=== PATIENT | male | born 1965 | race Caucasian/White ===

== ENCOUNTER 2021-07-02 10:15 | Outpatient (CLI) | payer MEDICARE, SELFPAY ==
--- NOTE | ~2021-07-02 | CT_ITS ---
EXAMINATION: CT lung screening DATE: 07/02/2021 10:39 INDICATION: Personal history of nicotine dependence, current smoker with 30 pack year history TECHNIQUE: Computed tomography (CT) of the chest was performed without intravenous contrast. The dose -length product (DLP) was 716.14 mGy-cm. Automated exposure control and iterative reconstruction tech [employer] were employed. COMPARISON: None FINDINGS: There is mild emphysema. The lungs are free of acute opacities. No suspicious pulmonary nod ules are identified. There is no pleural effusion or pneumothorax. No pathologically enlarged thoraci c lymph nodes are identified. The heart size is normal. There is calcified coronary artery atheroscle rosis. The liver is diffusely low in attenuation when compared with the spleen, consistent with hepat ic steatosis. There is a 2.6 cm cyst of the right kidney. There is mild anterior vertebral body wedgi ng at the thoracolumbar junction, likely physiologic. There is moderate thoracic spondylosis. There are partially imaged surgical changes of the lower cervical spine. IMPRESSION: 1. Lung-RADS category 1: Negative. Continue annual screening with noncontrast low-dose chest CT in 12 months. Reviewed, dictated and finalized at location [facility]. [employer] [facility] [facility] IMPRESSION: 1. Lung-RADS category 1: Negative. Continue annual screening with noncontrast l ow-dose chest CT in 12 months.
== END 2021-07-02 10:16 | disposition home or self-care (01) ==
LOC: ANHIMG 10:18
PROVIDERS: PCP Internal Medicine; Visit Provider Nurse Practitioner
DX: Z12.2 Encounter for screening for malignant neoplasm of respiratory organs (principal); Z87.891 Personal history of nicotine dependence
CPT/HCPCS: 71271

== ENCOUNTER 2022-04-09 12:13 | Emergency (ER) | payer MEDICARE, SELFPAY ==
[2022-04-09 12:18] VITALS: BP 157/88; PULSE 93; RESP 16; TEMP 36.6; O2SAT 98
--- NOTE | 2022-04-09 12:35 | ED.SKABFB ---
HPI - Skin/Abscess/Foreign Bdy General Chief complaint: Skin/Abscess/Foreign Body Stated complaint: BLISTER ON INSIDE OF THIGH Time Seen by Provider: 04/09/22 12:35 Source: patient Mode of arrival: ambulatory Limitations: no limitations History of Present Illness HPI narrative: 56 y/o male presented for c/o abscess to left upper inner thigh for over one week. He states he has tried to pop it on his own but it did not drain. States it becomes more painful as the day goes on. He states he has a history of abscesses. Did not apply anything to the site. Currently denies nausea, vomiting, diarrhea, fever or chills. Hx DM, HTN. Related Data Home Medications Medication Instructions Recorded Confirmed aspirin 81 mg tablet,delayed 81 mg PO DAILY 05/28/19 03/17/22 release (Adult Low Dose Aspirin) omega-3 fatty acids 1,000 mg 4,000 mg PO DAILY 06/19/20 03/17/22 capsule (Fish Oil Concentrate) aussrpuf-akg-mgnfr acid 300 1 tablet PO DAILY 10/28/21 03/17/22 mcg-lycopene 600 mcg-lutein 300 mcg tablet (Centrum Silver Men) Allergies Allergy/AdvReac Type Severity Reaction Status Date / Time No Known Allergies Allergy Unverified 03/17/22 13:05 NKDA Allergy Unknown Unknown Uncoded 03/17/22 13:05 NKFA Allergy Unknown Unknown Uncoded 03/17/22 13:05 Review of Systems Review of Systems: CONSTITUTIONAL: Denies body aches, fever, chills, or sweats. EYES: Denies visual changes, redness, or discharge. CARDIOVASCULAR: Denies chest pain, palpitations, or edema. RESPIRATORY: Denies cough or dyspnea. GASTROINTESTINAL: Denies abdominal pain, nausea, vomiting, or diarrhea. SKIN: reports abscess MUSCULOSKELETAL: Denies back pain, joint pain, or myalgia. NEUROLOGIC: Denies headache, numbness, tingling, or weakness. [facility] Past Medical History Medical History Arthritis Cervical vertebral fusion C6 - C7 plates and screws. Hypertension Rotator cuff injury Sleep apnea Surgical History Surgical History History of carpal tunnel surgery History of knee replacement S/P cubital tunnel release Family History Family History Mother Family history of mental disorder Hypertension Anxiety Osteoarthritis Father Hypertension Heart attack Grandparent Heart attack Social History Social History Smoking packs per day: 2 Smoking cigarettes per day: 40.0 Smoking status: Current every day smoker Alcohol intake: current Alcohol use details: once a week Comments At time of signature, I have reviewed and agree with nursing past medical, surgical, social and family history unless otherwise noted. Please see nursing chart for further information. There is no relevant family history pertinent to the presenting complaint Exam Narrative: GENERAL: Well-appearing ENT: Mucous membranes moist. Oropharynx without edema, erythema or lesions. NECK: Supple. CHEST: Clear to auscultation. HEART: Regular rate and rhythm. SKIN: Warm, dry. Abscess to left upper inner thigh, induration approx 5cm with fluctuant center no active drainage NEURO: Alert and oriented x3. Course Course Emergency Course: Patient is aware of diagnosis, understands and agrees to treatment plan. Anticipatory guidance given. Patient agrees to follow-up as directed and is aware of reasons to seek care at the emergency department. Portions of this record may have been created with voice recognition software Level of Care: Express Care Visit Vital Signs Vital signs: Vital Signs Temperature 97.9 F 04/09/22 12:18 Pulse Rate 93 04/09/22 12:18 Respiratory Rate 16 04/09/22 12:18 Blood Pressure 157/88 H 04/09/22 12:18 Pulse Oximetry 98 04/09/22 12:18 Oxygen Delivery Room Air 04/09/22 12:18 Temperature 97
== END 2022-04-09 13:16 | disposition home or self-care (01) ==
PROVIDERS: Emergency Provider Nurse Practitioner Family; PCP Nurse Practitioner
DX: L02.416 Cutaneous abscess of left lower limb (principal); F17.210 Nicotine dependence, cigarettes, uncomplicated; M19.90 Unspecified osteoarthritis, unspecified site; I10 Essential (primary) hypertension; G47.30 Sleep apnea, unspecified
CPT/HCPCS: 10060; 87070; 87075; 87076; 87205; 99213; G0463

== ENCOUNTER 2022-07-22 08:30 | Emergency (ER) | payer MEDICARE, SELFPAY ==
[2022-07-22 08:41] VITALS: BP 113/93; PULSE 96; RESP 16; TEMP 36.4; O2SAT 98
--- NOTE | 2022-07-22 08:58 | ED.SKABFB ---
HPI - Skin/Abscess/Foreign Bdy General Chief complaint: Skin/Abscess/Foreign Body Stated complaint: absess on inner thigh Time Seen by Provider: 07/22/22 08:55 Source: patient, RN notes reviewed and old records reviewed Mode of arrival: ambulatory Limitations: no limitations History of Present Illness HPI narrative: 57-year-old male who presents to [facility] with complaints of abscess to the right upper inner thigh for the past 3-4 days. Patient states area is very tender and rubbing when he walks painful also when he sits. 2 cm x 2 cm fluctuant abscess lesion noted to right upper inner thigh, tender on palpation with fluctuation noted. Patient denies any fevers, chills, or sweats. MD complaint: abscess/boil Onset (ago): day(s) ( 3-4) Severity scale (1-10): 3 Treatments prior to arrival: other ( warm compresses) Related Data Home Medications Medication Instructions Recorded Confirmed aspirin 81 mg tablet,delayed 81 mg PO DAILY 05/28/19 07/22/22 release (Adult Low Dose Aspirin) omega-3 fatty acids 1,000 mg 4,000 mg PO DAILY 06/19/20 07/22/22 capsule (Fish Oil Concentrate) fuwcinqw-ojz-dwypa acid 300 1 tablet PO DAILY 10/28/21 07/22/22 mcg-lycopene 600 mcg-lutein 300 mcg tablet (Centrum Silver Men) Allergies Allergy/AdvReac Type Severity Reaction Status Date / Time No Known Allergies Allergy Verified 07/22/22 08:44 Review of Systems Review of Systems: CONSTITUTIONAL: Denies fever, chills, or sweats. CARDIOVASCULAR: Denies chest pain, palpitations, or edema. RESPIRATORY: Denies cough or dyspnea. GASTROINTESTINAL: Denies abdominal pain, nausea, vomiting SKIN: Reports redness and swelling. Denies purulent drainage, buttock abscess noted to right upper inner thigh, no pain beyond proportion MUSCULOSKELETAL: Denies myalgia. NEUROLOGIC: Denies headache, numbness All systems reviewed & are unremarkable except as noted in HPI and below PMFSH Past Medical History Medical History (Updated 07/26/22 @ 10:56 by Karyn Aragon NP) Arthritis Cervical vertebral fusion C6 - C7 plates and screws. Elevated cholesterol Hypertension Rotator cuff injury Sleep apnea Tobacco abuse Surgical History Surgical History History of carpal tunnel surgery History of knee replacement S/P cubital tunnel release Family History Family History Mother Family history of mental disorder Hypertension Anxiety Osteoarthritis Father Hypertension Heart attack Grandparent Heart attack Social History Social History (Updated 07/26/22 @ 10:55 by Karyn Aragon NP) Smoking packs per day: 2 Smoking cigarettes per day: 40.0 Smoking status: Heavy tobacco smoker Tobacco type: cigarettes Alcohol intake: current Alcohol use details: once a week Substance use: never Lack of Transportation: No Lack of Food: Never True Current Housing: I Have Housing Concerned About Future Housing: No Difficulty Paying Gas/Electric Bills: No Difficulty Paying for Meds: No Currently Unemployed: No Education: High School Diploma/GED Difficulty w/ Childcare or Family Care: No Gender identity (if verbalized by the patient): Male Comments At time of signature, agree with nursing past medical, surgical, social and family history. There is no relevant family history pertinent to the presenting complaint Exam Narrative: GENERAL: Well-appearing, well-nourished, morbidly obese, and in no acute distress. HEAD: Normocephalic, atraumatic. EYES: PERRLA and EOMI. ENT: Nares clear, no rhinorrhea or epistaxis. Mucous membranes moist. TMs normal with good light reflex throat pink with no lesions or drainage NECK: Supple. no lymphadenopathy CHEST: Clear to auscultation. No respiratory distress. HEART: Regular rate and rhythm. No murmur heard. Normal peripheral pulses. ABDOMEN: Soft, nontender, nondistend
[2022-07-22] MEDS: LIDOCAINE HCL 1% LOCAL INJ 2 ML AMPUL INFILTRATE (09:27)
== END 2022-07-22 09:32 | disposition home or self-care (01) ==
PROVIDERS: Emergency Provider Registered Nurse; PCP Nurse Practitioner
DX: L02.415 Cutaneous abscess of right lower limb (principal); F17.210 Nicotine dependence, cigarettes, uncomplicated; M19.90 Unspecified osteoarthritis, unspecified site; E78.00 Pure hypercholesterolemia, unspecified; I10 Essential (primary) hypertension; Z79.82 Long term (current) use of aspirin
CPT/HCPCS: 10060; 87070; 87075; 87205; 99213; G0463

== ENCOUNTER 2023-06-10 15:25 | Emergency (ER) | payer MEDICARE, SELFPAY ==
--- NOTE | 2023-06-10 15:38 | ED.EXTPRO ---
HPI - Extremity Problem General Chief complaint: Extremity Problem,Nontraumatic Stated complaint: R TOE PAIN Time Seen by Provider: 06/10/23 15:41 Source: patient Mode of arrival: ambulatory Limitations: no limitations History of Present Illness HPI Narrative: 50-year-old male history of diabetes and gout presented for complaint right great toe pain, redness, and swelling. Onset 3-4 days. States it feels like gout. Denies injury. Sx started after drinking alcohol, which he usually limits. Pain is worse when walking. Related Data Home Medications Medication Instructions Recorded Confirmed aspirin 81 mg tablet,delayed 81 mg PO DAILY 05/28/19 06/10/23 release (Adult Low Dose Aspirin) omega-3 fatty acids 1,000 mg 4,000 mg PO DAILY 06/19/20 06/10/23 capsule (Fish Oil Concentrate) vmlowawj-ll-ovjlg 300 mcg-K 60 1 tablet PO DAILY 10/28/21 06/10/23 mcg-lycop 600 mcg-lutein 300 mcg tablet (Centrum Silver Men) Allergies Allergy/AdvReac Type Severity Reaction Status Date / Time No Known Allergies Allergy Verified 06/10/23 15:36 Review of Systems Review of Systems: CONSTITUTIONAL: Denies body aches, fever, chills EYES: Denies visual changes ENT: Denies rhinorrhea, congestion CARDIOVASCULAR: Denies chest pain, palpitations, or edema. RESPIRATORY: Denies cough or dyspnea. GASTROINTESTINAL: Denies abdominal pain, nausea, vomiting, or diarrhea. SKIN: Denies rash, itching, or wounds. MUSCULOSKELETAL: Reports right great toe pain denies back pain, or myalgia. NEUROLOGIC: Denies headache, numbness, tingling, or weakness. . All systems reviewed & are unremarkable except as noted in HPI and below PMFSH Past Medical History Medical History Arthritis Cervical vertebral fusion C6 - C7 plates and screws. Elevated cholesterol Hypertension Rotator cuff injury Sleep apnea Tobacco abuse Surgical History Surgical History H/O cervical spine surgery C6-7 plates and screws History of carpal tunnel surgery History of knee replacement S/P cubital tunnel release Family History Family History Mother Family history of mental disorder Hypertension Anxiety Osteoarthritis Father Hypertension Heart attack Grandparent Heart attack Social History Social History Smoking packs per day: 2 Smoking cigarettes per day: 40.0 Smoking status: Heavy tobacco smoker Tobacco type: cigarettes Alcohol intake: current Alcohol use details: once a week Substance use: never Lack of Transportation: No Lack of Food: Never True Current Housing: I Have Housing Concerned About Future Housing: No Difficulty Paying Gas/Electric Bills: No Difficulty Paying for Meds: No Currently Unemployed: No Education: High School Diploma/GED Difficulty w/ Childcare or Family Care: No Gender identity (if verbalized by the patient): Male Comments At time of signature, I have reviewed and agree with nursing past medical, surgical, social and family history unless otherwise noted. Please see nursing chart for further information. There is no relevant family history pertinent to the presenting complaint Exam Narrative: GENERAL: Well-appearing CHEST: Speaks in full sentences. No respiratory distress. HEART: Regular rate and rhythm. Normal and equal peripheral pulses. EXTREMITIES: Right great toe erythema, swelling and tenderness at MTP extending medially; foot has normal strength and sensation, normal range of motion but endorses pain with movement. No open wounds, or obvious deformity; alignment normal, pulse palpable and equal bilaterally, skin warm, dry, pink. Capillary refill less than 3 seconds. SKIN: Warm, dry, no rash. NEURO: Alert and oriented x3. PSYCH: Normal mood and affect
[2023-06-10 15:39] VITALS: BP 130/75; PULSE 78; RESP 16; TEMP 36.6; O2SAT 98
== END 2023-06-10 15:55 | disposition home or self-care (01) ==
PROVIDERS: Emergency Provider Nurse Practitioner Family; PCP Nurse Practitioner
DX: M10.9 Gout, unspecified (principal); F17.210 Nicotine dependence, cigarettes, uncomplicated; M19.90 Unspecified osteoarthritis, unspecified site; E78.00 Pure hypercholesterolemia, unspecified; I10 Essential (primary) hypertension; Z79.82 Long term (current) use of aspirin
CPT/HCPCS: 99213; G0463

== ENCOUNTER 2023-11-16 13:50 | Outpatient (CLI) | payer MEDICARE, SELFPAY ==
--- NOTE | ~2023-11-16 | CT_ITS ---
CT Scan of the Chest without Contrast: Clinical Indication: Lung cancer screening, nicotine dependence Technique: Contiguous sections were acquired throughout the chest without intravenous contrast. Dose reduction technique was used on this scan by utilizing automated exposure control and iterative recon struction technique. The dose-length product (DLP) was 777.13 mGy-cm. COMPARISON: 07/02/2021 Findings: There is no evidence of any significant mediastinal, hilar or axillary lymphadenopathy. Extensive cor onary artery calcifications are present. There is no evidence of pleural or pericardial effusion. Calcified right middle lobe granuloma present. There is minimal emphysema in the upper lobes. Images through the upper abdomen reveal no abnormalities. Impression: Lung RADS 2: Benign appearance. 12 month follow-up screening CT advised. Reviewed, dictated and finalized at [facility]. Impression: Lung RADS 2: Benign appearance. 12 month follow-up screening CT advised.
== END 2023-11-16 13:51 | disposition home or self-care (01) ==
LOC: ANHIMG 13:50
PROVIDERS: PCP Internal Medicine; Visit Provider Nurse Practitioner
DX: Z12.2 Encounter for screening for malignant neoplasm of respiratory organs (principal); F17.200 Nicotine dependence, unspecified, uncomplicated
CPT/HCPCS: 71271

== ENCOUNTER 2024-12-04 23:47 | Inpatient (IN) | payer MEDICARE, SELFPAY ==
--- NOTE | ~2024-12-04 | XR_ITS ---
Clinical Indication: Chest pain PA and lateral views of the chest: Comparison: 12/26/2017 Findings: The lungs are clear, without evidence of focal consolidation or pleural effusion. Cardiome diastinal silhouette is stable. Bones and soft tissues are unremarkable. Impression: Clear lungs. Cardiomegaly. Reviewed, dictated and finalized at location . Impression: Clear lungs. Cardiomegaly.
[2024-12-04 23:45] VITALS: BP 166/93; PULSE 95; RESP 16; TEMP 36.5; O2SAT 94
[2024-12-04 23:53] VITALS: BP 166/93; PULSE 95; RESP 19; O2SAT 96
--- NOTE | 2024-12-04 23:58 | ECG_ITS ---
Test Date: 2024-12-04 23:56:53 Measurements Intervals [place] Rate: 93 P: 53 LA: 157 QRS: 40 QRSD: 111 T: 93 QT: 343 QTc: 429 Interpretive Statements SINUS RHYTHM NONSPECIFIC ST & T-WAVE ABNORMALITY No previous ECG available for comparison Electronically Signed On 12-05-2024 15:58:07 CDT by Rafat Santiago M.D.
[2024-12-05] VITALS (40 sets, daily range): BP systolic 100–184; BP diastolic 47–161; PULSE 71–95; RESP 16–26; TEMP 36.3–37.1; O2SAT 85–100; BMI 56.7
[2024-12-05 00:10] LABS: Basophils Absolute Auto 0.1 K/mm3 (0.0-0.1); Basophils Percent Auto 0.7 % (0.2-1.2); Eosinophils Absolute Auto 0.2 K/mm3 (0-0.3); Eosinophils Percent Auto 2.1 % (0-4.4); Hemoglobin 14.1 g/dL (14.0-18.0); Immature Granulocyte Absolute 0.09 K/mm3 (0.00-0.031); Immature Granulocyte Percent A 0.8 % (0-0.5); Lymphocytes Absolute Auto 3.46 K/mm3 (0.9-3.2); Lymphocytes Percent Auto 31.6 % (18.3-44.2); Mean Corpuscular HGB Conc 33.6 g/dl (32-36); Mean Corpuscular Hemoglobin 33.2 pg (26-34); Mean Corpuscular Volume 98.8 fl (80-100); Monocytes Absolute Auto 0.9 K/mm3 (0.1-0.6); Monocytes Percent Auto 8.5 % (2.6-8.5); Neutrophils Absolute Auto 6.2 K/mm3 (1.3-6.7); Neutrophils Percent Auto 56.3 % (45.5-73.1); Platelet Count Result 206 k/mm3 (150-375); Red Blood Count 4.25 M/mm3 (4.6-6.20); Red Cell Distribution Width 14.4 % (11.5-14.5); White Blood Count 10.9 K/mm3 (4.5-10.0)
--- NOTE | 2024-12-05 00:13 | PC.NURSE ---
Patient states he had 2 ASA at 2200 and 2 ASA in EMS. No dose given at this time.
[2024-12-05 00:22] LABS: Alanine Aminotransferase 30 U/L (6-50); Albumin Level 4.5 g/dL (3.5-5.1); Alkaline Phosphatase 95 U/L (38-126); Anion Gap 10 mmol/L (4-12); Aspartate Amino Transferase 47 U/L (17-59); Bilirubin,Total 0.5 mg/dL (0.2-1.3); Blood Urea Nitrogen 35 mg/dL (9-20); Calcium 9.5 mg/dL (8.4-10.2); Carbon Dioxide 27 mmol/L (22-30); Chloride 101 mmol/L (98-107); Estimated CRCL calculation 81 ml/min; Estimated Glomerular Filt Rate 54; Glucose 348 mg/dL (65-110); Lipase 89 U/L (23-300); Potassium 4.6 mmol/L (3.4-5.0); Sodium 138 mmol/L (137-145)
[2024-12-05 00:24] LABS: Partial Thromboplastin Time 27.2 Seconds (22.3-36.8); Prothrombin Time 13.1 Seconds (11.1-14.7)
--- NOTE | 2024-12-05 00:40 | ECG_ITS ---
Test Date: 2024-12-05 00:47:30 Measurements Intervals [place] Rate: 92 P: 53 ME: 159 QRS: 43 QRSD: 106 T: 91 QT: 346 QTc: 429 Interpretive Statements SINUS RHYTHM NONSPECIFIC ST & T-WAVE ABNORMALITY Compared to ECG 12/04/2024 23:56:53 No significant changes Electronically Signed On 12-05-2024 15:58:30 CDT by Rafat Santiago M.D.
[2024-12-05] MEDS: MORPHINE SULFATE (*CRX) 4 MG/ML INJ IV PUSH (00:45)
--- NOTE | 2024-12-05 00:45 | ED_ITS ---
HPI - General Adult General Chief complaint: Chest Pain Stated complaint: CHEST AND JAW PAIN Time Seen by Provider: 12/04/24 23:53 History of Present Illness HPI narrative: This is a 59-year-old male with hypertension, diabetes, high cholesterol, tobacco use and morbid obesity presenting to the ED with chief complaint chest pain. Patient has had intermittent chest pain over the last 2 days. His 1st episode was yesterday afternoon and was described as pain in his upper chest radiating up to his jaw and his left shoulder. Pain lasted for approximately 3 hours but has recurred several times since then including latest episode at 9:30 p.m.on 12/04. During these episodes the patient becomes diaphoretic and has nausea without vomiting. Patient has continued to have left shoulder pain although that pain is reproducible with movement and he attributes to a left shoulder injury that he has had for quite some time. Related Data Home Medications Medication Instructions Recorded Confirmed Last Taken Type aspirin 81 mg tablet,delayed 81 mg PO DAILY 05/28/19 05/13/24 Unknown History release (Adult Low Dose Aspirin) omega-3 fatty acids 1,000 mg 4,000 mg PO DAILY 06/19/20 05/13/24 Unknown History capsule (Fish Oil Concentrate) wrhsiqdf-ch-dfthn 300 mcg-K 60 1 tablet PO DAILY 10/28/21 05/13/24 Unknown History mcg-lycop 600 mcg-lutein 300 mcg tablet (Centrum Silver Men) ibuprofen 200 mg tablet 600 mg PO TID PRN 04/29/24 05/13/24 Unknown History Allergies Allergy/AdvReac Type Severity Reaction Status Date / Time No Known Allergies Allergy Verified 12/04/24 23:52 [facility] Past Medical History Medical History Arthritis Cervical vertebral fusion C6 - C7 plates and screws. Elevated cholesterol Hypertension Rotator cuff injury Sleep apnea Tobacco abuse Surgical History Surgical History H/O cervical spine surgery C6-7 plates and screws History of carpal tunnel surgery History of knee replacement S/P cubital tunnel release Family History Family History Mother Family history of mental disorder Hypertension Anxiety Osteoarthritis Father Hypertension Heart attack Grandparent Heart attack Social History Social History Smoking packs per day: 2 Smoking cigarettes per day: 40.0 Smoking status: Heavy tobacco smoker Tobacco type: cigarettes Alcohol intake: current Alcohol use details: once a week Substance use: never Lack of Transportation: No Lack of Food: Never True Current Housing: I Have Housing Concerned About Future Housing: No Difficulty Paying Gas/Electric Bills: No Difficulty Paying for Meds: No Currently Unemployed: No Education: High School Diploma/GED Difficulty w/ Childcare or Family Care: No Gender identity (if verbalized by the patient): Male Exam 2 Narrative: APPEARANCE: Morbidly obese, appears uncomfortable Head: atraumatic. EYES: EOMI, NOSE: Atraumatic NECK: Trachea midline RESPIRATORY: No increased rate of breathing clear to auscultation CARDIOVASCULAR: RRR, no peripheral edema ABDOMINAL: Obese, nontender MUSCULOSKELETAl: No obvious deformities NEURO: Alert. Moving 4/4 extremities SKIN:: Warm, dry. Normal color PSYCHIATRIC: Normal affect Course Vital Signs Vital signs: Vital Signs Temperature 97.7 F 12/04/24 23:45 Pulse Rate 95 12/04/24 23:45 Respiratory Rate 16 12/04/24 23:45 Blood Pressure 166/93 H 12/04/24 23:45 Pulse Oximetry 94 12/04/24 23:45 Oxygen Delivery Room Air 12/04/24 23:45 Temperature 97.7 F 12/04/24 23:45 Pulse Rate 88 12/05/24 00:15 Respiratory Rate 19 12/05/24 00:15 Blood Pressure 128/81 12/05/24 00:15 Pulse Oximetry 95 12/05/24 00:15 Oxygen Delivery Room Air 12/05/24 00:15 Medical Decision Making [facility] Narrative Medical decision making narrative: -Course: 59-year-old male presenting intermittent cardiac chest pain over the last 2 days. Patient had mild discomfort in the ED that was treated with oxygen, nitroglycerin and morphine with complete resolution. His EKG showed mild J point depression with upsloping ST in V4 V5 but no STEMI criteria. Initial troponin 3.55. Patient started on heparin drip. Interventional Cardiology was consulted and will plan to Cath in the morning. Patient admitted to the IMU for further management. Patient has a complaint of left shoulder pain which is chronic msk pain. -DDX includes but is not limited to: ACS gerd, pna, pe, ptx Independent EKG interpretation: Rhythm [sinus], Rate [93], [place] -[normal], [place] -[normal], QRS [narrow], QTC [normal], T waves -[negative for concerning inversions], ST Segments - [Negative for concerning elevations] Final interpretations: [Normal Sinus Rhythm] Vital Signs Vital Signs: Vital Signs Temperature 97.7 F 12/04/24 23:45 Pulse Rate 95 12/04/24 23:45 Respiratory Rate 16 12/04/24 23:45 Blood Pressure 166/93 H 12/04/24 23:45 Pulse Oximetry 94 12/04/24 23:45 Oxygen Delivery Room Air 12/04/24 23:45 Temperature 97.7 F 12/04/24 23:45 Pulse Rate 88 12/05/24 00:15 Respiratory Rate 19 12/05/24 00:15 Blood Pressure 128/81 12/05/24 00:15 Pulse Oximetry 95 12/05/24 00:15 Oxygen Delivery Room Air 12/05/24 00:15 Lab Data 12/04/24 23:59 12/04/24 23:59 Labs: Lab Results 12/04/24 Range/Units 23:59 WBC 10.9 H (4.5-10.0) K/mm3 RBC 4.25 L (4.6-6.20) M/mm3 Hgb 14.1 (14.0-18.0) g/dL Hct 42.0 (42.0-52.0) % MCV 98.8 (80-100) fl MCH 33.2 (26-34) pg MCHC 33.6 (32-36) g/dl RDW 14.4 (11.5-14.5) % Plt Count 206 (150-375) k/mm3 MPV 10.0 (7.4-10.4) fl Immature Gran % (Auto) 0.8 H (0-0.5) % Neut % (Auto) 56.3 (45.5-73.1) % Lymph % (Auto) 31.6 (18.3-44.2) % [place] % (Auto) 8.5 (2.6-8.5) % Eos % (Auto) 2.1 (0-4.4) % Baso % (Auto) 0.7 (0.2-1.2) % Lymph # (Auto) 3.46 H (0.9-3.2) K/mm3 [place] # (Auto) 0.9 H (0.1-0.6) K/mm3 Eos # (Auto) 0.2 (0-0.3) K/mm3 Baso # (Auto) 0.1 (0.0-0.1) K/mm3 Abs Immat Gran (auto) 0.09 H (0.00-0.031) K/mm3 Absolute Neuts (auto) 6.2 (1.3-6.7) K/mm3 Absolute Nucleated RBC 0.000 (0.0-0.012) K/mm3 Nucleated RBC % 0.0 (0.0-0.2) % PT 13.1 (11.1-14.7) Seconds INR 1.0 APTT 27.2 (22.3-36.8) Seconds Sodium 138 (137-145) mmol/L Potassium 4.6 (3.4-5.0) mmol/L Chloride 101 (98-107) mmol/L Carbon Dioxide 27 (22-30) mmol/L Anion Gap 10 (4-12) mmol/L BUN 35 H (9-20) mg/dL Creatinine 1.36 H (0.7-1.3) mg/dL Estim Creat Clear Calc 81 ml/min Estimated GFR 54 L (59 - ) Glucose 348 H (65-110) mg/dL Calcium 9.5 (8.4-10.2) mg/dL Total Bilirubin 0.5 (0.2-1.3) mg/dL AST 47 (17-59) U/L ALT 30 (6-50) U/L Alkaline Phosphatase 95 (38-126) U/L Troponin I 3.550 H* (0.000-0.034) ng/mL Total Protein 8.0 (6.3-8.2) g/dL Albumin 4.5 (3.5-5.1) g/dL Lipase 89 (23-300) U/L Discharge Plan Discharge Clinical Impression: Non-ST elevation NV (NSTEMI) Patient Disposition: Still a Patient Condition: Stable Patient Language: Irish Prescriptions: No Action aspirin [Adult Low Dose Aspirin] 81 mg tablet,delayed release (DR/EC) 81 mg PO DAILY Centrum Silver Men 300-600-300 mcg tablet 1 tablet PO DAILY ibuprofen 200 mg tablet 600 mg PO TID PRN baclofen 10 mg tablet 10 mg PO TID PRN (Reason: muscle spasm) Qty: 20 1RF omega-3 fatty acids [Fish Oil Concentrate] 1,000 mg capsule 4,000 mg PO DAILY colchicine 0.6 mg tablet See Rx Instructions PO .COMPLEX Qty: 10 1RF Rx Instructions: take 2 tablets and then 1 hour later take 1 tablet on day one. Then take 1 tablet daily until flare resolves. triamcinolone acetonide 0.1 % lotion 1 applic topical BID PRN (Reason: rash) Qty: 60 0RF Ozempic 1 mg/dose (4 mg/3 mL) pen injector See Rx Instructions .ROUTE .COMPLEX Qty: 3 0RF Dose Instruction: INJECT 1 MG (0.75 ML) SUBCUTANEOUSLY ONCE WEEKLY Rx Instructions: INJECT 1 MG (0.75 ML) SUBCUTANEOUSLY ONCE WEEKLY atorvastatin 80 mg tablet See Rx Instructions .ROUTE .COMPLEX Qty: 100 1RF Dose Instruction: TAKE 1 TABLET BY MOUTH ONCE DAILY Rx Instructions: TAKE 1 TABLET BY MOUTH ONCE DAILY amlodipine 10 mg tablet See Rx Instructions .ROUTE .COMPLEX Qty: 100 1RF Dose Instruction: TAKE 1 TABLET BY MOUTH DAILY Rx Instructions: TAKE 1 TABLET BY MOUTH DAILY irbesartan-hydrochlorothiazide 300-12.5 mg tablet See Rx Instructions .ROUTE .COMPLEX Qty: 100 1RF Dose Instruction: TAKE 1 TABLET BY MOUTH DAILY Rx Instructions: TAKE 1 TABLET BY MOUTH DAILY fenofibrate 160 mg tablet See Rx Instructions .ROUTE .COMPLEX Qty: 100 1RF Dose Instruction: TAKE 1 TABLET BY MOUTH DAILY Rx Instructions: TAKE 1 TABLET BY MOUTH DAILY metformin 1,000 mg tablet 1,000 mg PO BID Qty: 200 1RF hydrochlorothiazide 12.5 mg tablet 12.5 mg PO DAILY Qty: 100 1RF Follow-up/Referrals: Devang Sanchez, [Primary Care Provider] -
[2024-12-05] MEDS: NITROGLYCERIN SL 0.4 MG TABLET SUBLINGUAL (00:46)
[2024-12-05] MEDS: HEPARIN SODIUM 5,000 UNITS/ML VIAL 4000 UNITS IV PUSH ×2 (00:48→07:31)
[2024-12-05] MEDS: HEPARIN SOD/D5W 100 UNITS/ML 25,000 UNITS/250 ML BAG 10 UNITS IV CONT (00:50)
--- OUTSIDE RECORDS SUMMARY | 2024-12-05 01:11 | XMS_ITS | Clinical Summary ---
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 Role Phone Unavailable Primary Care Provider Unavailabl e Social History Tobacco Use Types Packs/Day Years Used Date Smoking Tobacco: Never Assessed Sex and Gender Information Value Date Recorded Sex Assigned at Not on file Legal Sex Male 8:04 PM CDT Gender Identity Not on file Sexual Orientation Not on file Plan of Treatment Health Maintenance Due Date Last Done Comments Colorectal Cancer Screening Colonoscopy (10 Years) 1965 Annual Physical 1968 Hepatitis C 1983 DTaP, Tdap and Td Vaccines ( 1 - Tdap) 1984 Pneumococcal Vaccine: 50+ Ye ars (1 of 1 - PCV) 2015 Zoster Vaccines (1 of 2) 2015 COVID-19 Vaccine ( - 2023-2 5 season) 2024 Meningococcal B Vaccine Aged Out No l onger eligible based on patient's age to complete this topic Meningococcal Vaccine Aged Out No kenrick grace eligible based on patient's age to complete this topic RSV Immunizations Under 20 Months Aged Out No longer eligible based on patient's age to complete this topic
[2024-12-05 01:30] LABS: BEDSIDEPREGUCG Negative
--- NOTE | 2024-12-05 02:36 | ADMGEN ---
This patient, Alfredito Wolfe Jr., was admitted to IMU Room 206-02 at 0223. Patient/family oriented to hospital policies and general routines including ID bracelet, bed and alarms, visiting hours, pain management, procedures, bathroom and other care routines, personal items, smoking policy, room service/diet, and visiting hours. Information on how to activate the Rapid Response Team has been discussed. Patient/Family are encouraged to report perceived risks to care and to ask questions if they do not understand what they are told or what they should do.
--- NOTE | 2024-12-05 04:14 | PM.IMHP ---
H&P: HPI History of Present Illness Date/Time: 12/05/24 04:14 Chief Complaint: Chest pain Narrative: A 59-year-old male patient with a past medical history of hypertension, diabetes, high cholesterol, tobacco use, and morbid obesity presented to the ED due to chest pain. Per chart review, the patient has had chest pain for the last 2 days, which has been radiating to the jaw and his left shoulder. The pain was intermittent, but the previous episode at 9:30 p.m. was a little more severe, and I came to the ED. Pertinent ED labs: WBC 10.9, hemoglobin 14.1, hematocrit 42, platelet 206, sodium 138, potassium 4.6, BUN 35, creatinine 1.36, GFR 54, glucose 348 Troponin :3.5>5.330 EKG: Sinus rhythm, nonspecific ST and T-wave abnormality The patient is admitted to the NSTEMI setting. The patient has all the risk factors for acute MN. I advised the ER physician to contact Interventional Cardiology to review the case and determine if the patient needs urgent catheterization. During the evaluation, patient reports a a has episodes of chest pain associated with diaphoresis from last week. Unfortunately these episodes was more intense yesterday night and he came to ED. Of note patient has left shoulder pain after a fall last week and he reports he has a chronic injury of on his left rotator cuff. Patient id is a chronic smoker to 2 ppd and occasional alcoholism Review of Systems Review of Systems: Except as documented, all other systems were reviewed and are negative. FOR[facility]LY [facility] Past Medical History Medical History Arthritis Cervical vertebral fusion C6 - C7 plates and screws. Elevated cholesterol Hypertension Rotator cuff injury Sleep apnea Tobacco abuse Surgical History Surgical History H/O cervical spine surgery C6-7 plates and screws History of carpal tunnel surgery History of knee replacement S/P cubital tunnel release Family History Family History Mother Family history of mental disorder Hypertension Anxiety Osteoarthritis Father Hypertension Heart attack Grandparent Heart attack Social History Social History Smoking packs per day: 2.0 Smoking cigarettes per day: 40.0 Years smoked: 45 Smoking pack-years: 90.00 Smoking status: Current every day smoker Tobacco type: cigarettes Alcohol intake: current Drinks per week: 6 Alcohol use details: once a week Substance use: current Substance use type: marijuana Last use: 11/29/2024 Do You Feel Safe in your Home?: Yes Lack of Transportation: No Lack of Food: Never True Current Housing: I Have Housing Concerned About Future Housing: No Difficulty Paying Gas/Electric Bills: No Difficulty Paying for Meds: No Currently Unemployed: No Education: High School Diploma/GED Difficulty w/ Childcare or Family Care: No Gender identity (if verbalized by the patient): Male Spiritual care concerns: No Meds Home Medications and Allergies Home Medications Medication Instructions Recorded Confirmed Type aspirin 81 mg tablet,delayed 81 mg PO HS 05/28/19 12/05/24 History release (Adult Low Dose Aspirin) omega-3 fatty acids 1,000 mg 4,000 mg PO HS 06/19/20 12/05/24 History capsule (Fish Oil Concentrate) [id number] 300 mcg-K 60 1 tablet PO HS 10/28/21 12/05/24 History mcg-lycop 600 mcg-lutein 300 mcg tablet (Centrum Silver Men) baclofen 10 mg tablet 10 mg PO TID PRN muscle spasm #20 04/29/24 12/05/24 Rx tabs ibuprofen 200 mg tablet 600 mg PO TID PRN fever or pain 04/29/24 12/05/24 History triamcinolone acetonide 0.1 % 1 applic topical BID PRN rash #60 05/13/24 12/05/24 Rx lotion mL amlodipine 10 mg tablet 10 mg PO HS 12/05/24 12/05/24 History atorvastatin 80 mg tablet 80 mg PO HS 12/05/24 12/05/24 History fenofibrate 160 mg tablet 160 mg PO HS 12/05/24 12/05/24 History hydrochlorothiazide 12.5 mg tablet 12.5 mg PO HS 12/05/24 12/05/24 History irbesartan 300 1 tablet PO HS 12/05/24 12/05/24 History mg-hydrochlorothiazide 12.5 mg tablet metformin 1,000 mg tablet 2,000 mg PO HS 12/05/24 12/05/24 History Allergies Allergy/AdvReac Type Severity Reaction Status Date / Time No Known Allergies Allergy Verified 12/05/24 02:39 Vital Signs Vital Signs - 24 hr 12/04/24 23:45 12/04/24 23:53 12/05/24 00:14 Temperature 97.7 F Pulse Rate 95 95 95 Respiratory Rate 16 19 Blood Pressure 166/93 H 166/93 H Pulse Oximetry 94 96 Oxygen Delivery Room Air Oxygen Flow Rate 12/05/24 00:15 12/05/24 00:15 12/05/24 00:50 Temperature Pulse Rate 88 Respiratory Rate 19 Blood Pressure 128/81 Pulse Oximetry 95 95 100 Oxygen Delivery Room Air Nasal Cannula Oxygen Flow Rate 2 12/05/24 01:47 12/05/24 02:39 12/05/24 03:03 Temperature 98.1 F Pulse Rate 92 90 Respiratory Rate 21 H 23 H Blood Pressure 131/69 139/55 L Pulse Oximetry 93 96 98 Oxygen Delivery Nasal Cannula Oxygen Flow Rate 2 12/05/24 03:18 12/05/24 04:00 Temperature Pulse Rate 88 Respiratory Rate 26 H Blood Pressure Pulse Oximetry 94 96 Oxygen Delivery CPAP Nasal Cannula Oxygen Flow Rate 2 Exam Narrative: APPEARANCE: Morbidly obese, appears uncomfortable Head: atraumatic. EYES: EOMI, NOSE: Atraumatic NECK: Trachea midline RESPIRATORY: No increased rate of breathing clear to auscultation CARDIOVASCULAR: RRR, no peripheral edema ABDOMINAL: Obese, nontender MUSCULOSKELETAl: No obvious deformities NEURO: Alert. Moving 4/4 extremities SKIN:: Warm, dry. Normal color PSYCHIATRIC: Normal affect H&P: Results Labs Labs: Short CBC 12/04/24 Range/Units 23:59 WBC 10.9 H (4.5-10.0) K/mm3 Hgb 14.1 (14.0-18.0) g/dL Hct 42.0 (42.0-52.0) % Plt Count 206 (150-375) k/mm3 BMP 12/04/24 23:59 Sodium 138 Potassium 4.6 Chloride 101 Carbon Dioxide 27 BUN 35 H Creatinine 1.36 H Glucose 348 H Calcium 9.5 Cardiac Enzymes 12/04/24 12/05/24 Range/Units 23:59 02:41 Troponin I 3.550 H* 5.330 H* D (0.000-0.034) ng/mL Liver Function 05/14/25 Range/Units 23:59 Total Bilirubin 0.5 (0.2-1.3) mg/dL AST 47 (17-59) U/L ALT 30 (6-50) U/L Alkaline Phosphatase 95 (38-126) U/L Albumin 4.5 (3.5-5.1) g/dL Assessment and Plan Assessment and plan (1) Hypertension: Qualifiers: Hypertension type: essential hypertension Qualified Code(s): I10 - Essential (primary) hypertension Code(s): I10 - Essential (primary) hypertension Status: Acute (2) Non-ST elevation MN (NSTEMI): Code(s): I21.4 - Non-ST elevation (NSTEMI) myocardial infarction Status: Acute (3) Hyperlipidemia: Qualifiers: Hyperlipidemia type: mixed hyperlipidemia Qualified Code(s): E78.2 - Mixed hyperlipidemia Code(s): E78.5 - Hyperlipidemia, unspecified Status: Acute (4) Elevated cholesterol: Code(s): E78.00 - Pure hypercholesterolemia, unspecified Status: Acute (5) Diabetes mellitus: Qualifiers: Diabetes mellitus complication status: without complication Diabetes mellitus longwall shearer operator insulin use: without jail use Diabetes mellitus type: type 2 Qualified Code(s): E11.9 - Type 2 diabetes mellitus without complications Code(s): E11.9 - Type 2 diabetes mellitus without complications Status: Acute Plan Non-ST elevation MN -Possible cath tomorrow -continue atorvastatin 80 mg, and aspirin 81 mg -Cardiology on board -Continue the heparin drip and give sublingual nitro if needed -Echocardiogram pending -Denies any illicit drug use -Reviewed EKG and CXR Type 2 diabetes mellitus Moderate sliding scale Hypoglycemia protocol Hold metformin HLD Continue atorvastatin 80 mg p.o. q.h.s. Hypertriglyceridemia Continue fenofibrate 160 mg p.o. q.h.s. HTN Continue amlodipine COURTNEY Hold [id number] hydrochlorothiazide 12.5 mg p.o. HS Avoid nephrotoxic drugs Trend BUN and creatinine Gentle fluid resuscitation LÓPEZ Continue home CPAP DVT prophylaxis: On heparin drip Hospitalist MIPS Advance Care Plan I have confirmed that the patient's Advanced Care Plan is present, code status is documented, or surrogate decision maker is listed in patient medical record.: Yes Medication Reconciliation I have utilized all available resources to obtain, update and review the patients current medications (includes all prescriptions, OTC, herbals, cannabis, and nutritional supplements).: Yes
[2024-12-05] MEDS: SODIUM CHLORIDE 0.9% IV 1,000 ML 75 ML IV CONT (05:47)
[2024-12-05 07:00] LABS: Basophils Absolute Auto 0.1 K/mm3 (0.0-0.1); Basophils Percent Auto 0.6 % (0.2-1.2); Eosinophils Absolute Auto 0.2 K/mm3 (0-0.3); Eosinophils Percent Auto 2.1 % (0-4.4); Hematocrit 40.9 % (42.0-52.0); Hemoglobin 13.5 g/dL (14.0-18.0); Immature Granulocyte Absolute 0.08 K/mm3 (0.00-0.031); Immature Granulocyte Percent A 0.8 % (0-0.5); Lymphocytes Absolute Auto 3.65 K/mm3 (0.9-3.2); Lymphocytes Percent Auto 34.2 % (18.3-44.2); Mean Corpuscular Hemoglobin 32.5 pg (26-34); Mean Corpuscular Volume 98.3 fl (80-100); Mean Platelet Volume 9.7 fl (7.4-10.4); Monocytes Absolute Auto 0.9 K/mm3 (0.1-0.6); Monocytes Percent Auto 8.7 % (2.6-8.5); Neutrophils Absolute Auto 5.7 K/mm3 (1.3-6.7); Neutrophils Percent Auto 53.6 % (45.5-73.1); Platelet Count Result 216 k/mm3 (150-375); Red Blood Count 4.16 M/mm3 (4.6-6.20); Red Cell Distribution Width 14.5 % (11.5-14.5); White Blood Count 10.7 K/mm3 (4.5-10.0)
[2024-12-05 07:16] LABS: Prothrombin Time 13.7 Seconds (11.1-14.7)
[2024-12-05 07:17] LABS: Partial Thromboplastin Time 32.3 Seconds (22.3-36.8)
[2024-12-05 07:30] LABS: Hemoglobin A1C 7.3 % (<5.7)
[2024-12-05 07:42] LABS: Glucose Point of Care 183 mg/dl (65-105)
[2024-12-05] MEDS: ACETAMINOPHEN 325 MG TABLET 650 MG PO ×2 (08:47→15:50)
[2024-12-05 11:25] LABS: Glucose Point of Care 192 mg/dl (65-105)
--- NOTE | 2024-12-05 11:46 | PM.IMPN ---
Progress Note: A&P Assessment and Plan (1) Hypertension: Qualifiers: Hypertension type: essential hypertension Qualified Code(s): I10 - Essential (primary) hypertension Code(s): I10 - Essential (primary) hypertension Status: Acute (2) Non-ST elevation ND (NSTEMI): Code(s): I21.4 - Non-ST elevation (NSTEMI) myocardial infarction Status: Acute (3) Hyperlipidemia: Qualifiers: Hyperlipidemia type: mixed hyperlipidemia Qualified Code(s): E78.2 - Mixed hyperlipidemia Code(s): E78.5 - Hyperlipidemia, unspecified Status: Acute (4) Elevated cholesterol: Code(s): E78.00 - Pure hypercholesterolemia, unspecified Status: Acute (5) Diabetes mellitus: Qualifiers: Diabetes mellitus type: type 2 Diabetes mellitus intermediate insulin use: without manager long term care use Diabetes mellitus complication status: without complication Qualified Code(s): E11.9 - Type 2 diabetes mellitus without complications Code(s): E11.9 - Type 2 diabetes mellitus without complications Status: Acute Plan Non-ST elevation ND -Possible cath today -continue atorvastatin 80 mg, and aspirin 81 mg -Cardiology on board -Continue the heparin drip and give sublingual nitro if needed -Echocardiogram pending -Denies any illicit drug use -Reviewed EKG and CXR Type 2 diabetes mellitus Moderate sliding scale Hypoglycemia protocol Hold metformin HLD Continue atorvastatin 80 mg p.o. q.h.s. Hypertriglyceridemia Continue fenofibrate 160 mg p.o. q.h.s. HTN Continue amlodipine COURTNEY Hold [id number]- hydrochlorothiazide 12.5 mg p.o. HS Avoid nephrotoxic drugs Trend BUN and creatinine Gentle fluid resuscitation LÓPEZ Continue home CPAP DVT prophylaxis: On heparin drip Subjective Date/time seen: 12/05/24 11:46 Interval history: per HPI: A 59-year-old male patient with a past medical history of hypertension, diabetes, high cholesterol, tobacco use, and morbid obesity presented to the ED due to chest pain. Per chart review, the patient has had chest pain for the last 2 days, which has been radiating to the jaw and his left shoulder. The pain was intermittent, but the previous episode at 9:30 p.m. was a little more severe, and I came to the ED. Pertinent ED labs: WBC 10.9, hemoglobin 14.1, hematocrit 42, platelet 206, sodium 138, potassium 4.6, BUN 35, creatinine 1.36, GFR 54, glucose 348 Troponin :3.5>5.330 EKG: Sinus rhythm, nonspecific ST and T-wave abnormality 12/05/24 Slime was seen and examined at bedside. he still has chest pain but getting better. complaining of worsening chronic shoulder and back pain. cardiology team has been consulted. plan for possible cardiac cath. Review of Systems Review of Systems: Except as documented, all other systems were reviewed and are negative. Exam Narrative: APPEARANCE: Morbidly obese, appears uncomfortable Head: atraumatic. EYES: EOMI, NOSE: Atraumatic NECK: Trachea midline RESPIRATORY: No increased rate of breathing clear to auscultation CARDIOVASCULAR: RRR, no peripheral edema ABDOMINAL: Obese, nontender MUSCULOSKELETAl: No obvious deformities NEURO: Alert. Moving 4/4 extremities SKIN:: Warm, dry. Normal color PSYCHIATRIC: Normal affect Objective Data Vital Signs Vital Signs: Vital Signs - 24 hr 12/04/24 23:45 12/04/24 23:53 12/05/24 00:14 Temperature 97.7 F Pulse Rate 95 95 95 Respiratory Rate 16 19 Blood Pressure 166/93 H 166/93 H Pulse Oximetry 94 96 Oxygen Delivery Room Air Oxygen Flow Rate 12/05/24 00:15 12/05/24 00:15 12/05/24 00:50 Temperature Pulse Rate 88 Respiratory Rate 19 Blood Pressure 128/81 Pulse Oximetry 95 95 100 Oxygen Delivery Room Air Nasal Cannula Oxygen Flow Rate 2 12/05/24 01:47 12/05/24 02:39 12/05/24 03:03 Temperature 98.1 F Pulse Rate 92 90 Respiratory Rate 21 H 23 H Blood Pressure 131/69 139/55 L Pulse Oximetry 93 96 98 Oxygen Delivery Nasal Cannula Oxygen Flow Rate 2 12/05/24 03:18 12/05/24 04:00 12/05/24 04:00 Temperature Pulse Rate 88 92 Respiratory Rate 26 H Blood Pressure Pulse Oximetry 94 96 Oxygen Delivery CPAP Nasal Cannula Oxygen Flow Rate 2 12/05/24 04:47 12/05/24 06:00 12/05/24 07:45 Temperature 98.3 F 98.1 F Pulse Rate 89 90 85 Respiratory Rate 24 H 18 Blood Pressure 125/51 L 147/67 H Pulse Oximetry 98 85 L Oxygen Delivery Oxygen Flow Rate 12/05/24 08:00 12/05/24 08:00 12/05/24 10:00 Temperature Pulse Rate 86 86 Respiratory Rate Blood Pressure Pulse Oximetry 96 Oxygen Delivery Nasal Cannula Oxygen Flow Rate 2 12/05/24 10:26 12/05/24 11:26 Temperature 98.7 F Pulse Rate 80 Respiratory Rate 20 Blood Pressure 140/60 Pulse Oximetry 95 94 Oxygen Delivery Nasal Cannula Oxygen Flow Rate 2 Intake/Output Intake/Output: Intake & Output 12/02/24 12/03/24 12/04/24 12/05/24 23:59 23:59 23:59 23:59 Intake Total 66.7 Output Total 925 Balance -858.3 Meds/Results Medications: Active Medications Generic Name Dose Route Start Last Admin Trade Name Freq PRN Reason Stop Dose Admin Acetaminophen 650 mg 12/05/24 07:58 12/05/24 08:47 Acetaminophen 325 Mg Tablet PO 650 mg Q6H PRN Administration Mild Pain (1-3) or Fever Amlodipine Besylate 10 mg 12/05/24 21:00 Amlodipine Besylate 10 Mg Tablet PO HS BAMBI Aspirin 81 mg 12/05/24 21:00 Aspirin 81 Mg Enteric Tablet PO HS BAMBI Atorvastatin Calcium 80 mg 12/05/24 21:00 Atorvastatin 40 Mg Tablet PO HS BAMBI Baclofen 10 mg 12/05/24 04:27 Baclofen 10 Mg Tablet PO TID PRN muscle spasm Dextrose 12.5 gm 12/05/24 04:05 Dextrose 50% 25 Gm/50 Ml Syringe IV PUSH PRN PRN Hypoglycemia Protocol Fenofibrate 145 mg 12/05/24 21:00 Fenofibrate Nanocrystallized 145 Mg Tablet PO HS BAMBI Glucagon 1 mg 12/05/24 04:05 Glucagon For Inj 1 Mg Vial IM PRN PRN Hypoglycemia Protocol Glucose 15 gm 12/05/24 04:05 Glucose Oral Gel 15 Gm Of Glucse In 37.5 Gm Tube PO PRN PRN Hypoglycemia Protocol Heparin Sodium (Porcine) 4,000 units 12/05/24 00:40 12/05/24 07:31 Heparin Sodium 5,000 Units/Ml Vial IV PUSH 4,000 units PRN PRN Administration aPTT less than 55 seconds Heparin Sodium (Porcine) 4,000 units 12/05/24 00:40 Heparin Sodium 5,000 Units/Ml Vial IV PUSH PRN PRN aPTT 55 - 70 seconds Hydrochlorothiazide 12.5 mg 12/05/24 21:00 Hydrochlorothiazide 12.5 Mg Capsule PO HS BAMBI Heparin Sodium/Dextrose 25,000 units in 250 mls @ 14 mls/hr 12/05/24 00:40 12/05/24 07:30 Heparin Sodium/D5w 100 Units/Ml IV CONT 1,400 units/hr .[id number] BAMBI 14 mls/hr Titration Protocol 1,400 UNITS/HR Dextrose 1,000 mls @ 100 mls/hr 12/05/24 04:05 Dextrose 5% 1,000 Ml IVPB PRN PRN Hypoglycemia Protocol Sodium Chloride 1,000 mls @ 75 mls/hr 12/05/24 04:35 12/05/24 05:47 Normal Saline Iv IV CONT 75 mls/hr .[id number] BAMBI Administration Insulin Aspart 3 - 6 units 12/05/24 08:00 12/05/24 08:45 Insulin Aspart (*Bkc) 100 Units/Ml SUB-Q Not Given TIDWM [facility] Protocol Insulin Aspart 1 - 3 units 12/05/24 21:00 Insulin Aspart (*Bkc) 100 Units/Ml SUB-Q HS [facility] Protocol Morphine Sulfate 2 mg 12/05/24 09:55 Morphine Sulfate (*Crx) 2 Mg/Ml Inj IV PUSH Q4H PRN Pain Rated 7-10 Perflutren Lipid Microsphere 0 ml 12/05/24 04:26 Perflutren Lipid Microspheres 1.5 Ml Vial Diluted To 10 Ml Total Volume IV PUSH 12/08/24 04:26 ONCE PRN adequate visualization Protocol Radiology Results: ITS Impressions Chest X-Ray 12/05/24 05:14 Impression: Clear lungs. Cardiomegaly. Labs Labs: Laboratory Results - last 24 hr 12/04/24 12/05/24 12/05/24 23:59 01:28 02:41 WBC 10.9 H RBC 4.25 L Hgb 14.1 Hct 42.0 MCV 98.8 MCH 33.2 MCHC 33.6 RDW 14.4 Plt Count 206 MPV 10.0 Immature Gran % (Auto) 0.8 H Neut % (Auto) 56.3 Lymph % (Auto) 31.6 Warren % (Auto) 8.5 Eos % (Auto) 2.1 Baso % (Auto) 0.7 Lymph # (Auto) 3.46 H Warren # (Auto) 0.9 H Eos # (Auto) 0.2 Baso # (Auto) 0.1 Abs Immat Gran (auto) 0.09 H Absolute Neuts (auto) 6.2 Absolute Nucleated RBC 0.000 Nucleated RBC % 0.0 PT 13.1 INR 1.0 APTT 27.2 Sodium 138 Potassium 4.6 Chloride 101 Carbon Dioxide 27 Anion Gap 10 BUN 35 H Creatinine 1.36 H Estim Creat Clear Calc 81 Estimated GFR 54 L Glucose 348 H POC Capillary Glucose Hemoglobin A1c Calcium 9.5 Total Bilirubin 0.5 AST 47 ALT 30 Alkaline Phosphatase 95 Troponin I 3.550 H* 5.330 H* D Total Protein 8.0 Albumin 4.5 Lipase 89 POC Urine HCG, Qual Negative 12/05/24 12/05/24 12/05/24 06:54 07:20 11:18 WBC 10.7 H RBC 4.16 L Hgb 13.5 L Hct 40.9 L MCV 98.3 MCH 32.5 MCHC 33.0 RDW 14.5 Plt Count 216 MPV 9.7 Immature Gran % (Auto) 0.8 H Neut % (Auto) 53.6 Lymph % (Auto) 34.2 Warren % (Auto) 8.7 H Eos % (Auto) 2.1 Baso % (Auto) 0.6 Lymph # (Auto) 3.65 H Warren # (Auto) 0.9 H Eos # (Auto) 0.2 Baso # (Auto) 0.1 Abs Immat Gran (auto) 0.08 H Absolute Neuts (auto) 5.7 Absolute Nucleated RBC 0.000 Nucleated RBC % 0.0 PT 13.7 INR 1.0 APTT 32.3 Sodium Potassium Chloride Carbon Dioxide Anion Gap BUN Creatinine Estim Creat Clear Calc Estimated GFR Glucose POC Capillary Glucose 183 H 192 H Hemoglobin A1c 7.3 H Calcium Total Bilirubin AST ALT Alkaline Phosphatase Troponin I 6.770 H* D Total Protein Albumin Lipase POC Urine HCG, Qual
--- NOTE | 2024-12-05 12:24 | PM.CNCAR ---
Assessment and Plan Assessment and plan (1) Non-ST elevation ME (NSTEMI): Code(s): I21.4 - Non-ST elevation (NSTEMI) myocardial infarction Status: Acute (2) Hypertension associated with diabetes: Code(s): E11.59 - Type 2 diabetes mellitus with other circulatory complications; I15.2 - Hypertension secondary to endocrine disorders Status: Acute (3) Hyperlipidemia associated with type 2 diabetes mellitus: Code(s): E11.69 - Type 2 diabetes mellitus with other specified complication; E78.5 - Hyperlipidemia, unspecified Status: Acute Plan 59-year-old man who is an active smoker with diabetes, hypertension, hyperlipidemia, and morbid obesity presents with chest discomfort Non ST-elevation ME -continue aspirin 81 mg p.o. daily and atorvastatin 80 mg every evening -obtain a transthoracic echocardiogram and add carvedilol 12.5 mg p.o. b.i.d. -heparin drip and proceed with urgent left heart cardiac catheterization with possible PCI -procedure risk and benefits as well as alternatives have been discussed with the patient who agreed to proceed forward with the procedure Hypertension -hydrochlorothiazide 12.5 mg p.o. daily, amlodipine 10 mg p.o. daily and will add carvedilol 12.5 mg p.o. b.i.d. Hyperlipidemia -atorvastatin 80 mg every evening Active tobacco user -cessation counseling History of Present Illness History of Present Illness Consult date/time: 12/05/24 12:24 Requesting physician: Saleem Gresham MD Reason For Visit: NSTEMI Narrative: 59-year-old man who is an active smoker with diabetes, hypertension, hyperlipidemia, and morbid obesity presents with chest discomfort. He had an episode of chest discomfort last week that lasted for an hour with radiation to jaw. It resolved on its own with rest. About 3 days ago he had recurrence of intermittent chest discomfort also with radiation to the jaw. This persistently worsen in intensity, duration, and frequency finally prompting patient to present to the emergency room for further assistance. Has some associated shortness of breath. He is not very physically active and has not noted is any exacerbating factors. His physical limitations are mostly secondary to orthopedic issues including knee and back problems. Review of Systems Cardiovascular: Cardiovascular: Reports as per HPI Respiratory: Respiratory: Reports as per HPI [facility] Past Medical History Medical History Arthritis Cervical vertebral fusion C6 - C7 plates and screws. Elevated cholesterol Hypertension Rotator cuff injury Sleep apnea Tobacco abuse Surgical History Surgical History H/O cervical spine surgery C6-7 plates and screws History of carpal tunnel surgery History of knee replacement S/P cubital tunnel release Family History Family History Mother Family history of mental disorder Hypertension Anxiety Osteoarthritis Father Hypertension Heart attack Grandparent Heart attack Social History Social History Smoking packs per day: 2.0 Smoking cigarettes per day: 40.0 Years smoked: 45 Smoking pack-years: 90.00 Smoking status: Current every day smoker Tobacco type: cigarettes Alcohol intake: current Drinks per week: 6 Alcohol use details: once a week Substance use: current Substance use type: marijuana Last use: 11/29/2024 Do You Feel Safe in your Home?: Yes Lack of Transportation: No Lack of Food: Never True Current Housing: I Have Housing Concerned About Future Housing: No Difficulty Paying Gas/Electric Bills: No Difficulty Paying for Meds: No Currently Unemployed: No Education: High School Diploma/GED Difficulty w/ Childcare or Family Care: No Gender identity (if verbalized by the patient): Male Spiritual care concerns: No Meds Home Medications and Allergies Home Medications Medication Instructions Recorded Confirmed Type aspirin 81 mg tablet,delayed 81 mg PO HS 05/28/19 12/05/24 History release (Adult Low Dose Aspirin) omega-3 fatty acids 1,000 mg 4,000 mg PO HS 06/19/20 12/05/24 History capsule (Fish Oil Concentrate) [id number] 300 mcg-K 60 1 tablet PO HS 10/28/21 12/05/24 History mcg-lycop 600 mcg-lutein 300 mcg tablet (Centrum Silver Men) baclofen 10 mg tablet 10 mg PO TID PRN muscle spasm #20 04/29/24 12/05/24 Rx tabs ibuprofen 200 mg tablet 600 mg PO TID PRN fever or pain 04/29/24 12/05/24 History triamcinolone acetonide 0.1 % 1 applic topical BID PRN rash #60 05/13/24 12/05/24 Rx lotion mL amlodipine 10 mg tablet 10 mg PO HS 12/05/24 12/05/24 History atorvastatin 80 mg tablet 80 mg PO HS 12/05/24 12/05/24 History fenofibrate 160 mg tablet 160 mg PO HS 12/05/24 12/05/24 History hydrochlorothiazide 12.5 mg tablet 12.5 mg PO HS 12/05/24 12/05/24 History irbesartan 300 1 tablet PO HS 12/05/24 12/05/24 History mg-hydrochlorothiazide 12.5 mg tablet metformin 1,000 mg tablet 2,000 mg PO HS 12/05/24 12/05/24 History Allergies Allergy/AdvReac Type Severity Reaction Status Date / Time No Known Allergies Allergy Verified 12/05/24 02:39 Vital Signs Vital Signs - 24 hr 12/04/24 23:45 12/04/24 23:53 12/05/24 00:14 Temperature 36.5 C Pulse Rate 95 95 95 Respiratory Rate 16 19 Blood Pressure 166/93 H 166/93 H Pulse Oximetry 94 96 Oxygen Delivery Room Air Oxygen Flow Rate 12/05/24 00:15 12/05/24 00:15 12/05/24 00:50 Temperature Pulse Rate 88 Respiratory Rate 19 Blood Pressure 128/81 Pulse Oximetry 95 95 100 Oxygen Delivery Room Air Nasal Cannula Oxygen Flow Rate 2 12/05/24 01:47 12/05/24 02:39 12/05/24 03:03 Temperature 36.7 C Pulse Rate 92 90 Respiratory Rate 21 H 23 H Blood Pressure 131/69 139/55 L Pulse Oximetry 93 96 98 Oxygen Delivery Nasal Cannula Oxygen Flow Rate 2 12/05/24 03:18 12/05/24 04:00 12/05/24 04:00 Temperature Pulse Rate 88 92 Respiratory Rate 26 H Blood Pressure Pulse Oximetry 94 96 Oxygen Delivery CPAP Nasal Cannula Oxygen Flow Rate 2 12/05/24 04:47 12/05/24 06:00 12/05/24 07:45 Temperature 36.8 C 36.7 C Pulse Rate 89 90 85 Respiratory Rate 24 H 18 Blood Pressure 125/51 L 147/67 H Pulse Oximetry 98 85 L Oxygen Delivery Oxygen Flow Rate 12/05/24 08:00 12/05/24 08:00 12/05/24 10:00 Temperature Pulse Rate 86 86 Respiratory Rate Blood Pressure Pulse Oximetry 96 Oxygen Delivery Nasal Cannula Oxygen Flow Rate 2 12/05/24 10:26 12/05/24 11:26 Temperature 37.1 C Pulse Rate 80 Respiratory Rate 20 Blood Pressure 140/60 Pulse Oximetry 95 94 Oxygen Delivery Nasal Cannula Oxygen Flow Rate 2 Exam Const: General: no acute distress HENMT: Mouth: Yes moist mucous membranes Eyes: EOM: EOMs intact bilaterally Neck: Neck: no JVD Resp: Effort & Inspection: normal respiratory effort Auscultation: clear to auscultation bilaterally Cardio: Rate: regular rate Rhythm: regular rhythm GI: GI Palp: Yes Soft to palpation Extrem: General: no pedal edema Results Labs and Meds 12/05/24 06:54 12/04/24 23:59 Lab results: Cardiac Enzymes 12/04/24 12/05/24 12/05/24 Range/Units 23:59 02:41 06:54 AST 47 (17-59) U/L Troponin I 3.550 H* 5.330 H* D 6.770 H* D (0.000-0.034) ng/mL Coagulation 12/04/24 12/05/24 Range/Units 23:59 06:54 PT 13.1 13.7 (11.1-14.7) Seconds APTT 27.2 32.3 (22.3-36.8) Seconds CBC 12/04/24 12/05/24 Range/Units 23:59 06:54 WBC 10.9 H 10.7 H (4.5-10.0) K/mm3 RBC 4.25 L 4.16 L (4.6-6.20) M/mm3 Hgb 14.1 13.5 L (14.0-18.0) g/dL Hct 42.0 40.9 L (42.0-52.0) % Plt Count 206 216 (150-375) k/mm3 Lymph # (Auto) 3.46 H 3.65 H (0.9-3.2) K/mm3 [place] # (Auto) 0.9 H 0.9 H (0.1-0.6) K/mm3 Eos # (Auto) 0.2 0.2 (0-0.3) K/mm3 Baso # (Auto) 0.1 0.1 (0.0-0.1) K/mm3 Comprehensive Metabolic Panel 12/04/24 Range/Units 23:59 Sodium 138 (137-145) mmol/L Potassium 4.6 (3.4-5.0) mmol/L Chloride 101 (98-107) mmol/L Carbon Dioxide 27 (22-30) mmol/L BUN 35 H (9-20) mg/dL Creatinine 1.36 H (0.7-1.3) mg/dL Glucose 348 H (65-110) mg/dL Calcium 9.5 (8.4-10.2) mg/dL AST 47 (17-59) U/L ALT 30 (6-50) U/L Alkaline Phosphatase 95 (38-126) U/L Total Protein 8.0 (6.3-8.2) g/dL Albumin 4.5 (3.5-5.1) g/dL Intake and Output 12/04/24 12/05/24 12/05/24 23:59 07:59 15:59 Intake Total 66.7 Output Total 925 Balance -858.3 Intake: IV 66.7 Heparin Sod/D5w 100 Units/ml 25 66.7 ,000 units In 250 ml @ 1,400 UNITS/HR 14 mls/hr IV CONT . [id number] [facility], [facility] Rx#:[id number] Output: Urine 925 Patient Weight 12/05/24 23:59 Weight 169.1 kg
[2024-12-05 14:15] LABS: Activated Clotting Time 199 SEC (74-137)
[2024-12-05 14:43] LABS: Activated Clotting Time 273 SEC (74-137)
--- NOTE | 2024-12-05 15:27 | WPDHPUPDATE1 ---
History and Physical Update Update Date/Time: 12/05/24 14:20 History and Physical has been reviewed, including an updated exam of the patient. There are NO changes in the patient's condition. Risks, benefits, and alternatives have been discussed and questions answered. Patient agrees to proceed with procedure.
--- NOTE | 2024-12-05 15:28 | WPDMODSED ---
Moderate Sedation Note-Pt Data Patient Data Allergies Allergy/AdvReac Type Severity Reaction Status Date / Time No Known Allergies Allergy Verified 12/05/24 02:39 Home Medications Medication Instructions Recorded Confirmed Type aspirin 81 mg tablet,delayed 81 mg PO HS 05/28/19 12/05/24 History release (Adult Low Dose Aspirin) omega-3 fatty acids 1,000 mg 4,000 mg PO HS 06/19/20 12/05/24 History capsule (Fish Oil Concentrate) [id number] 300 mcg-K 60 1 tablet PO HS 10/28/21 12/05/24 History mcg-lycop 600 mcg-lutein 300 mcg tablet (Centrum Silver Men) baclofen 10 mg tablet 10 mg PO TID PRN muscle spasm #20 04/29/24 12/05/24 Rx tabs ibuprofen 200 mg tablet 600 mg PO TID PRN fever or pain 04/29/24 12/05/24 History triamcinolone acetonide 0.1 % 1 applic topical BID PRN rash #60 05/13/24 12/05/24 Rx lotion mL amlodipine 10 mg tablet 10 mg PO HS 12/05/24 12/05/24 History atorvastatin 80 mg tablet 80 mg PO HS 12/05/24 12/05/24 History fenofibrate 160 mg tablet 160 mg PO HS 12/05/24 12/05/24 History hydrochlorothiazide 12.5 mg tablet 12.5 mg PO HS 12/05/24 12/05/24 History irbesartan 300 1 tablet PO HS 12/05/24 12/05/24 History mg-hydrochlorothiazide 12.5 mg tablet metformin 1,000 mg tablet 2,000 mg PO HS 12/05/24 12/05/24 History Current Medications: Active Medications Acetaminophen (Acetaminophen 325 Mg Tablet) 650 mg PO Q6H PRN PRN Reason: Mild Pain (1-3) or Fever Last Admin: 12/05/24 08:47 Dose: 650 mg Amlodipine Besylate (Amlodipine Besylate 10 Mg Tablet) 10 mg PO HS BAMBI Aspirin (Aspirin 81 Mg Enteric Tablet) 81 mg PO HS BAMBI Atorvastatin Calcium (Atorvastatin 40 Mg Tablet) 80 mg PO HS BAMBI Baclofen (Baclofen 10 Mg Tablet) 10 mg PO TID PRN PRN Reason: muscle spasm Carvedilol (Carvedilol 12.5 Mg Tablet) 12.5 mg PO Q12HR BAMBI Dextrose (Dextrose 50% 25 Gm/50 Ml Syringe) 12.5 gm IV PUSH PRN PRN; Protocol PRN Reason: Hypoglycemia Fenofibrate (Fenofibrate Nanocrystallized 145 Mg Tablet) 145 mg PO HS BAMBI Glucagon (Glucagon For Inj 1 Mg Vial) 1 mg IM PRN PRN; Protocol PRN Reason: Hypoglycemia Glucose (Glucose Oral Gel 15 Gm Of Glucse In 37.5 Gm Tube) 15 gm PO PRN PRN; Protocol PRN Reason: Hypoglycemia Hydrochlorothiazide (Hydrochlorothiazide 12.5 Mg Capsule) 12.5 mg PO HS BAMBI Dextrose (Dextrose 5% 1,000 Ml) 1,000 mls @ 100 mls/hr IVPB PRN PRN; Protocol PRN Reason: Hypoglycemia Sodium Chloride (Normal Saline Iv) 1,000 mls @ 75 mls/hr IV CONT .[id number] BAMBI Last Admin: 12/05/24 05:47 Dose: 75 mls/hr Sodium Chloride (Normal Saline Iv) 1,000 mls @ 100 mls/hr IV CONT .Q10H ONE Stop: 12/06/24 00:58 Insulin Aspart (Insulin Aspart (*Bkc) 100 Units/Ml) 3 - 6 units SUB-Q TIDWM BAMBI; Protocol Last Admin: 12/05/24 12:28 Dose: Not Given Insulin Aspart (Insulin Aspart (*Bkc) 100 Units/Ml) 1 - 3 units SUB-Q HS BAMBI; Protocol Morphine Sulfate (Morphine Sulfate (*Crx) 2 Mg/Ml Inj) 2 mg IV PUSH Q4H PRN PRN Reason: Pain Rated 7-10 Perflutren Lipid Microsphere (Perflutren Lipid Microspheres 1.5 Ml Vial Diluted To 10 Ml Total Volume) 0 ml IV PUSH ONCE PRN; Protocol PRN Reason: adequate visualization Stop: 12/08/24 04:26 Ticagrelor (Ticagrelor 90 Mg Tablet) 90 mg PO Q12HR [facility] Sedation/Anesthesia: No previous sedation/anesthesia problems (including family history). [facility] Past Medical History Medical History Arthritis Cervical vertebral fusion C6 - C7 plates and screws. Elevated cholesterol Hypertension Rotator cuff injury Sleep apnea Tobacco abuse Surgical History Surgical History H/O cervical spine surgery C6-7 plates and screws History of carpal tunnel surgery History of knee replacement S/P cubital tunnel release Family History Family History Mother Family history of mental disorder Hypertension Anxiety Osteoarthritis Father Hypertension Heart attack Grandparent Heart attack Social History Social History Smoking packs per day: 2.0 Smoking cigarettes per day: 40.0 Years smoked: 45 Smoking pack-years: 90.00 Smoking status: Current every day smoker Tobacco type: cigarettes Alcohol intake: current Drinks per week: 6 Alcohol use details: once a week Substance use: current Substance use type: marijuana Last use: 11/29/2024 Do You Feel Safe in your Home?: Yes Lack of Transportation: No Lack of Food: Never True Current Housing: I Have Housing Concerned About Future Housing: No Difficulty Paying Gas/Electric Bills: No Difficulty Paying for Meds: No Currently Unemployed: No Education: High School Diploma/GED Difficulty w/ Childcare or Family Care: No Gender identity (if verbalized by the patient): Male Spiritual care concerns: No Mod Sed Physical Exam Physical Exam Pre Procedural Exam: Normal: Lungs and Heart Rate Hours since solid foods: 12 Hours since liquid intake: 12 Mallampati Classification: class III Internal Medicine - PN: Obj Da Vital Signs Vital Signs: Vital Signs - 24 hr 12/04/24 23:45 12/04/24 23:53 12/05/24 00:14 Temperature 36.5 C Pulse Rate 95 95 95 Respiratory Rate 16 19 Blood Pressure 166/93 H 166/93 H Pulse Oximetry 94 96 Oxygen Delivery Room Air Oxygen Flow Rate 12/05/24 00:15 12/05/24 00:15 12/05/24 00:50 Temperature Pulse Rate 88 Respiratory Rate 19 Blood Pressure 128/81 Pulse Oximetry 95 95 100 Oxygen Delivery Room Air Nasal Cannula Oxygen Flow Rate 2 12/05/24 01:47 12/05/24 02:39 12/05/24 03:03 Temperature 36.7 C Pulse Rate 92 90 Respiratory Rate 21 H 23 H Blood Pressure 131/69 139/55 L Pulse Oximetry 93 96 98 Oxygen Delivery Nasal Cannula Oxygen Flow Rate 2 12/05/24 03:18 12/05/24 04:00 12/05/24 04:00 Temperature Pulse Rate 88 92 Respiratory Rate 26 H Blood Pressure Pulse Oximetry 94 96 Oxygen Delivery CPAP Nasal Cannula Oxygen Flow Rate 2 12/05/24 04:47 12/05/24 06:00 12/05/24 07:45 Temperature 36.8 C 36.7 C Pulse Rate 89 90 85 Respiratory Rate 24 H 18 Blood Pressure 125/51 L 147/67 H Pulse Oximetry 98 85 L Oxygen Delivery Oxygen Flow Rate 12/05/24 08:00 12/05/24 08:00 12/05/24 10:00 Temperature Pulse Rate 86 86 Respiratory Rate Blood Pressure Pulse Oximetry 96 Oxygen Delivery Nasal Cannula Oxygen Flow Rate 2 12/05/24 10:26 12/05/24 11:26 12/05/24 12:00 Temperature 37.1 C Pulse Rate 80 Respiratory Rate 20 Blood Pressure 140/60 Pulse Oximetry 95 94 96 Oxygen Delivery Nasal Cannula Nasal Cannula Oxygen Flow Rate 2 2 12/05/24 12:00 12/05/24 15:00 Temperature Pulse Rate 80 80 Respiratory Rate 20 Blood Pressure 159/83 H Pulse Oximetry 96 Oxygen Delivery Nasal Cannula Oxygen Flow Rate 2 Intake/Output Intake/Output: Intake & Output 12/02/24 12/03/24 12/04/24 12/05/24 23:59 23:59 23:59 23:59 Intake Total 66.7 Output Total 925 Balance -858.3 Meds/Results Medications: Active Medications Generic Name Dose Route Start Last Admin Trade Name Freq PRN Reason Stop Dose Admin Acetaminophen 650 mg 12/05/24 07:58 12/05/24 08:47 Acetaminophen 325 Mg Tablet PO 650 mg Q6H PRN Administration Mild Pain (1-3) or Fever Amlodipine Besylate 10 mg 12/05/24 21:00 Amlodipine Besylate 10 Mg Tablet PO HS BAMBI Aspirin 81 mg 12/05/24 21:00 Aspirin 81 Mg Enteric Tablet PO HS BAMBI Atorvastatin Calcium 80 mg 12/05/24 21:00 Atorvastatin 40 Mg Tablet PO HS BAMBI Baclofen 10 mg 12/05/24 04:27 Baclofen 10 Mg Tablet PO TID PRN muscle spasm Carvedilol 12.5 mg 12/05/24 21:00 Carvedilol 12.5 Mg Tablet PO Q12HR BAMBI Dextrose 12.5 gm 12/05/24 04:05 Dextrose 50% 25 Gm/50 Ml Syringe IV PUSH PRN PRN Hypoglycemia Protocol Fenofibrate 145 mg 12/05/24 21:00 Fenofibrate Nanocrystallized 145 Mg Tablet PO HS BAMBI Glucagon 1 mg 12/05/24 04:05 Glucagon For Inj 1 Mg Vial IM PRN PRN Hypoglycemia Protocol Glucose 15 gm 12/05/24 04:05 Glucose Oral Gel 15 Gm Of Glucse In 37.5 Gm Tube PO PRN PRN Hypoglycemia Protocol Hydrochlorothiazide 12.5 mg 12/05/24 21:00 Hydrochlorothiazide 12.5 Mg Capsule PO HS BAMBI Dextrose 1,000 mls @ 100 mls/hr 12/05/24 04:05 Dextrose 5% 1,000 Ml IVPB PRN PRN Hypoglycemia Protocol Sodium Chloride 1,000 mls @ 75 mls/hr 12/05/24 04:35 12/05/24 05:47 Normal Saline Iv IV CONT 75 mls/hr .[id number] BAMBI Administration Sodium Chloride 1,000 mls @ 100 mls/hr 12/05/24 14:59 Normal Saline Iv IV CONT 12/06/24 00:58 .Q10H ONE Insulin Aspart 3 - 6 units 12/05/24 08:00 12/05/24 12:28 Insulin Aspart (*Bkc) 100 Units/Ml SUB-Q Not Given TIDWM [facility] Protocol Insulin Aspart 1 - 3 units 12/05/24 21:00 Insulin Aspart (*Bkc) 100 Units/Ml SUB-Q HS [facility] Protocol Morphine Sulfate 2 mg 12/05/24 09:55 Morphine Sulfate (*Crx) 2 Mg/Ml Inj IV PUSH Q4H PRN Pain Rated 7-10 Perflutren Lipid Microsphere 0 ml 12/05/24 04:26 Perflutren Lipid Microspheres 1.5 Ml Vial Diluted To 10 Ml Total Volume IV PUSH 12/08/24 04:26 ONCE PRN adequate visualization Protocol Ticagrelor 90 mg 12/05/24 21:00 Ticagrelor 90 Mg Tablet PO Q12HR [facility] Radiology Results: ITS Impressions Chest X-Ray 12/05/24 05:14 Impression: Clear lungs. Cardiomegaly. Labs 12/05/24 06:54 12/04/24 23:59 Labs: Laboratory Results - last 24 hr 12/04/24 12/05/24 12/05/24 23:59 01:28 02:41 WBC 10.9 H RBC 4.25 L Hgb 14.1 Hct 42.0 MCV 98.8 MCH 33.2 MCHC 33.6 RDW 14.4 Plt Count 206 MPV 10.0 Immature Gran % (Auto) 0.8 H Neut % (Auto) 56.3 Lymph % (Auto) 31.6 [place] % (Auto) 8.5 Eos % (Auto) 2.1 Baso % (Auto) 0.7 Lymph # (Auto) 3.46 H [place] # (Auto) 0.9 H Eos # (Auto) 0.2 Baso # (Auto) 0.1 Abs Immat Gran (auto) 0.09 H Absolute Neuts (auto) 6.2 Absolute Nucleated RBC 0.000 Nucleated RBC % 0.0 PT 13.1 INR 1.0 APTT 27.2 Activ Coag Time Kaolin Sodium 138 Potassium 4.6 Chloride 101 Carbon Dioxide 27 Anion Gap 10 BUN 35 H Creatinine 1.36 H Estim Creat Clear Calc 81 Estimated GFR 54 L Glucose 348 H POC Capillary Glucose Hemoglobin A1c Calcium 9.5 Total Bilirubin 0.5 AST 47 ALT 30 Alkaline Phosphatase 95 Troponin I 3.550 H* 5.330 H* D Total Protein 8.0 Albumin 4.5 Lipase 89 POC Urine HCG, Qual Negative 12/05/24 12/05/24 12/05/24 06:54 07:20 11:18 WBC 10.7 H RBC 4.16 L Hgb 13.5 L Hct 40.9 L MCV 98.3 MCH 32.5 MCHC 33.0 RDW 14.5 Plt Count 216 MPV 9.7 Immature Gran % (Auto) 0.8 H Neut % (Auto) 53.6 Lymph % (Auto) 34.2 [place] % (Auto) 8.7 H Eos % (Auto) 2.1 Baso % (Auto) 0.6 Lymph # (Auto) 3.65 H [place] # (Auto) 0.9 H Eos # (Auto) 0.2 Baso # (Auto) 0.1 Abs Immat Gran (auto) 0.08 H Absolute Neuts (auto) 5.7 Absolute Nucleated RBC 0.000 Nucleated RBC % 0.0 PT 13.7 INR 1.0 APTT 32.3 Activ Coag Time Kaolin Sodium Potassium Chloride Carbon Dioxide Anion Gap BUN Creatinine Estim Creat Clear Calc Estimated GFR Glucose POC Capillary Glucose 183 H 192 H Hemoglobin A1c 7.3 H Calcium Total Bilirubin AST ALT Alkaline Phosphatase Troponin I 6.770 H* D Total Protein Albumin Lipase POC Urine HCG, Qual 12/05/24 12/05/24 14:12 14:41 WBC RBC Hgb Hct MCV MCH MCHC RDW Plt Count MPV Immature Gran % (Auto) Neut % (Auto) Lymph % (Auto) [place] % (Auto) Eos % (Auto) Baso % (Auto) Lymph # (Auto) [place] # (Auto) Eos # (Auto) Baso # (Auto) Abs Immat Gran (auto) Absolute Neuts (auto) Absolute Nucleated RBC Nucleated RBC % PT INR APTT Activ Coag Time Kaolin 199 H 273 H Sodium Potassium Chloride Carbon Dioxide Anion Gap BUN Creatinine Estim Creat Clear Calc Estimated GFR Glucose POC Capillary Glucose Hemoglobin A1c Calcium Total Bilirubin AST ALT Alkaline Phosphatase Troponin I Total Protein Albumin Lipase POC Urine HCG, Qual ASA Classification/Sedation ASA Classification/Sedation ASA Class: III Emergent: No Risks: Risks, benefits and alternatives explained and patient/family accepted plan for sedation. Patient re-evaluated immediately prior to sedation.
--- NOTE | 2024-12-05 15:28 | WPDCARDPROC ---
Cardiac Cath Procedure Note Date of procedure:: 12/05/24 Performing physician:: CATHETERIZATION LABORATORY REPORT Procedure Date: 12/05/2024 Referring Physician: Dr. Gresham Anesthesia: Versed and Fentanyl were ordered and given in my presence at 1325, procedure ended at 1435. Supervision of nurse, Megha Cid monitored moderate sedation with 4mg Versed and 300mcg Fentanyl was provided for 70 minutes. Pre-op Diagnosis: NSTEMI Post-op Diagnosis: NSTEMI Procedure(s): Left heart catheterization with coronary angiography Access Site: Right radial artery Brief History and Clinical Indications: 59-year-old man presented with chest pain whose clinical presentation was consistent with non ST elevation RI is now brought to the cardiac catheterization lab for cardiac catheterization with possible PCI. All risks, benefits and alternatives to left heart catheterization with or without percutaneous coronary intervention was discussed at length with the patient. Risk of complications including but not limited to bleeding, infection, arrhythmia, stroke, worsening kidney function, blood loss, groin hematoma, limb loss, emergency coronary artery bypass grafting, and even were discussed with the patient and all questions were answered. The patient understood and wished to proceed. Time out called, patient name, date of , medical record number, allergies, procedure performed, identify .Net Architect, patient and staff member concurred with accurate data, procedure carried on. Findings: LEFT HEART CATHETERIZATION FINDINGS: 1. Left main: The left main coronary artery is a large vessel with distal 30-40% stenosis. 2. Left anterior descending: The LAD is a large caliber vessel that provides 2 significant diagonal branches. The 1st diagonal branch have luminal irregularities. The 2nd diagonal branch in its midbody divides into 2 vessels, the inferior branch has 70% stenosis. The ostial to proximal LAD has 20-30% calcific stenosis. The remainder of the LAD has diffuse mild 10-20% stenosis. 3. Left circumflex: The left circumflex artery is a large dominant vessel that provides 3 significant OM branches prior to giving off the left PDA. The significant OM branches and left PDA vessels are free of angiographic high-grade stenosis. The proximal left circumflex has a 50% stenosis. 4. Ramus Intermedius: This is a moderate caliber vessel supplying a medium-sized territory the the that has a 95% stenosis in its midbody. Proximal to the stenosis there is diffuse 40-50% stenosis. 5. Right coronary artery: The RCA is a small non dominant vessel. 5. Left ventricle: A. End-diastolic pressure 37 mmHg. B. LV gram deferred. C. No significant gradient across aortic valve on catheter pullback. 6. Opening AO pressure 98/59 and closing AO pressure 130/80 Description of Procedure: Informed consent signed and placed in the chart. Patient transferred to lab associate room. Prepped and draped in usual sterile fashion. 2% lidocaine injected subcutaneously in right wrist area. 22-gauge venipuncture catheter used to access the right radial artery with the Seldinger technique. 6-FR slender sheath placed in right radial artery. Nitroglycerin 200mcg, Verapamil 2.5mg, and Heparin 5000U was given intraarterial through the sheath. J wire advanced under fluoroscopy. 5F Ultra diagnostic catheter engaged Left Main Coronary Artery. 5F Ultra diagnostic catheter engaged Right Coronary Artery Multiple orthogonal angiogram obtained and reviewed 5F Pigtail diagnostic catheter crossed aortic valve to obtain LVEDP, LV angiogram deferred. Procedure Description for PCI: Heparin was used for anticoagulation (ACT maintained above 250) Patient loaded with heparin at 70 units/kg. 6F EBU 3.5 guide catheter was used to engage the LMCA. 0.014 Runthrough coronary wire was passed in to the Ramus Intermedius. A second Runthrough coronary wire was passed into the left circumflex. IVUS was performed of the Ramus Intermedius showing significant disease all the way to the ostium of the vessel. IVUS was performed of the left circumflex that showed a MLA 4mm2. The ostium of the left circumflex vessel had mild calcific stenosis. The distal LMCA did not reveal significant obstruction by MLA. At this time, the decision was made to proceed with PCI of the ramus intermedius. The lesion was pre-dilated with a 2.5 x 20mm balloon inflated to 8atm yielding good results. A 3.0 x 38mm [place] ESME was successfully deployed into Ramus Intermedius covering the ostium of the vessel. The stent was post-dilated with a 3.5 x 20mm NC balloon inflated to high LANNY. IVUS was performed and there was one area of underexpansion and this area was post dilated with a 3.5 x 20mm NC balloon inflated to 22atm. Coronary wire and guide-catheter were removed under fluoroscopy. Follow-up angiograms showed an excellent result. Pre-procedure - JOSE 3 flow Post-procedure - JOSE 3 flow No angiographic complications identified. Assessment: Successful IVUS guided PCI to the Ramus Intermedius with a 3.0 x 38mm [place] ESME; post dilated with a 3.5 x 20mm NC to 22atm with excellent angiographic results. Post Operative Condition: Stable No significant blood loss Disposition: Floor Plan: ASA 81mg PO indefinitely. Ticagrelor 90mg PO BID for a minimum of 1 year. Aggressive risk factor modification and smoking cessation. Optimize medical management and obtain TTE. Rafat Santiago Interventional Cardiology
[2024-12-05] MEDS: BACLOFEN 10 MG TABLET PO (15:51)
--- NOTE | 2024-12-05 15:58 | PC.NURSE ---
Pt instructed with each VS, site check to avoid use of R arm. Pt observed using R arm at intervals.
--- NOTE | 2024-12-05 16:00 | SUR.PHASEII ---
Pt c/o back spasms. Baclofen and Acetominophen given
[2024-12-05] MEDS: amLODIPine BESYLATE 10 MG TABLET PO (16:53)
[2024-12-05] MEDS: carvediloL 12.5 MG TABLET PO (16:54)
[2024-12-05 17:36] LABS: Glucose Point of Care 197 mg/dl (65-105)
[2024-12-05 17:46] LABS: Anion Gap 12 mmol/L (4-12); Blood Urea Nitrogen 31 mg/dL (9-20); Calcium 10.3 mg/dL (8.4-10.2); Carbon Dioxide 21 mmol/L (22-30); Chloride 106 mmol/L (98-107); Estimated CRCL calculation 84 ml/min; Estimated Glomerular Filt Rate 57; Glucose 186 mg/dL (65-110); Potassium 4.7 mmol/L (3.4-5.0); Sodium 139 mmol/L (137-145)
[2024-12-05 19:47] LABS: Glucose Point of Care 171 mg/dl (65-105)
[2024-12-05] MEDS: SODIUM CHLORIDE 0.9% IV 1,000 ML 100 ML IV CONT (20:28)
[2024-12-05] MEDS: TICAGRELOR 90 MG TABLET PO (20:29)
[2024-12-05] MEDS: FENOFIBRATE NANOCRYSTALLIZED 145 MG TABLET PO (20:29)
[2024-12-05] MEDS: ASPIRIN 81 MG ENTERIC TABLET PO (20:29)
[2024-12-05] MEDS: ATORVASTATIN 40 MG TABLET 80 MG PO (20:29)
[2024-12-05] MEDS: hydroCHLOROthiazide 12.5 MG CAPSULE PO (20:29)
[2024-12-06] VITALS (8 sets, daily range): BP systolic 126–127; BP diastolic 58–69; PULSE 68–78; RESP 20–24; TEMP 36.4–36.9; O2SAT 95–98
--- NOTE | 2024-12-06 | ECHO_ITS ---
Patient Info Name: Alfredito Wolfe Age: 59 years : 1965 Gender: Male Ht: 68 in Wt: 361 lbs BSA: 2.90 m2 HR: 71 bpm BP: 127 / 58 mmHg Heart Rhythm: Sinus Rhythm Technical Quality: Fair Exam Date: 12/06/2024 10:34 AM Patient Status: I Admit Date: 12/05/2024 Exam Type: CA echo doppler color flow Complete two-dimensional, color flow and Doppler transthoracic echocardiogram is performed. Staff Referring Physician: Abdiel Siegel Bench Assembler Electrical: Nadine Trinidad Attending Provider: Jumana Avila Summary 1. Complete two-dimensional, color flow and Doppler transthoracic echocardiogram is performed. 2. Left ventricular chamber dimension is normal. 3. Left ventricular systolic function is normal, estimated at 60-65. 4. There is mildly increased left ventricular wall thickness. 5. The left ventricular diastolic function is normal. 6. Left atrial chamber dimension is mildly enlarged. 7. The mitral valve annulus is mildly calcified. 8. There is mild tricuspid valve regurgitation. Left Ventricle Left ventricular chamber dimension is normal. Left ventricular systolic function is normal, estimated at 60-65. There is mildly increased left ventricular wall thickness. The left ventricular diastolic function is normal. Right Ventricle Right ventricular chamber dimension is normal. Right ventricular systolic function is normal. Left Atria Left atrial chamber dimension is mildly enlarged. Right Atria Right atrial chamber dimension is normal. Atrial Septum Intact interatrial septum visualized by color flow imaging. Aortic Valve The aortic valve is probable trileaflet. There is mild aortic valve sclerosis. There is no aortic valve stenosis. There is trace aortic valve regurgitation. Pulmonic Valve The pulmonic valve is normal. There is no pulmonic valve stenosis. There is trace pulmonic regurgitation. Mitral Valve There is no mitral valve stenosis. There is trace mitral valve regurgitation. The mitral valve annulus is mildly calcified. Tricuspid Valve The tricuspid valve leaflets are normal. There is no significant tricuspid valve stenosis. There is mild tricuspid valve regurgitation. No pulmonary hypertension, estimated pulmonary arterial systolic pressure is 20 mmHg. Pericardium/Pleural The pericardium appears normal. There is trivial pericardial effusion. Inferior Vena Cava Normal inferior vena cava with >50% collapse upon inspiration consistent with normal right atrial pressure, 5 mmHg. Aorta The aortic root size at the sinus of Valsalva is normal. Left Ventricular Outflow Tract Name Value Normal LVOT 2D LVOT Diameter 2.0 cm LVOT Doppler LVOT Peak Velocity 102 cm/s LVOT Peak Gradient 4 mmHg LVOT Mean Gradient 2 mmHg LVOT VTI 22 cm LVOT VTI/AV VTI Ratio 0.9 LVOT Stroke Volume 65 ml LVOT CO 11.6 l/min LVOT CI 4.0 l/min/m2 Pulmonic Valve Name Value Normal RVOT Doppler RVOT Peak Velocity 69 cm/s RVOT Peak Gradient 2 mmHg PV Doppler PV Peak Velocity 101 cm/s PV Peak Gradient 4 mmHg Mitral Valve Name Value Normal MV Diastolic Function MV E Peak Velocity 81 cm/s MV A Peak Velocity 57 cm/s MV E/A 1.4 MV Decel Time (PW) 155 ms MV Annular TDI MV E/e' (Septal) 9.2 MV E/e' (Lateral) 10.0 MV E/e' (Average) 9.6 Tricuspid Valve Name Value Normal TV Regurgitation Doppler TR Peak Velocity 194 cm/s TR Peak Gradient 15 mmHg Estimated PAP/RSVP RA Pressure 5 mmHg <=5 PA Systolic Pressure 20 mmHg <36 RV Systolic Pressure 20 mmHg <36 TV Annular TDI TV Lateral Chani s' Velocity 13.3 cm/s >=9.5 Aortic Valve Name Value Normal AV Doppler AV Peak Velocity 124 cm/s AV Peak Gradient 6 mmHg AV Mean Gradient 3 mmHg AV VTI 25 cm AV Area (Cont Eq VTI) 2.6 cm2 >=3.0 AV Area (Cont Eq Sukhwinder) 2.5 cm2 AV DI (Sukhwinder) 0.82 AV Regurgitation 2D LVOT Area 3.0 cm2 Ventricles Name Value Normal LV Dimensions 2D/MM IVS Diastolic Thickness (2D) 1.2 cm 0.6-1.0 LVID Diastole (2D) 4.5 cm 4.2-5.8 LVIW Diastolic Thickness (2D) 1.2 cm 0.6-1.0 LVID Systole (2D) 3.2 cm 2.5-4.0 LVOT Diameter 2.0 cm LV Mass (2D Cubed) 200.83 g 88.00-224.00 LV Mass Index (2D Cubed) 69 g/m2 49-115 Relative Wall Thickness (2D) 0.53 <=0.42 LV Fractional Shortening/Ejection Fraction 2D/MM LV Fractional Shortening (2D) 28 % 25-43 LV EF (2D Teichholz) 55 % LV Diastolic Volume (4C MOD) 199 ml LV EF (4C MOD) 59 % LV Diastolic Volume (2C MOD) 185 ml LV EF (2C MOD) 67 % LV Diastolic Volume (BP MOD) 192 ml 62-150 LV Diastolic Volume Index (BP MOD) 66 ml/m2 34-74 LV Systolic Volume (BP MOD) 72 ml 21-61 LV Systolic Volume Index (BP MOD) 25 ml/m2 11-31 LV EF (BP MOD) 62 % 52-72 LV Diastolic Length (4C) 9.7 cm LV Systolic Length (4C) 7.4 cm LV Stroke Volume (4C MOD) 118 ml Atria Name Value Normal LA Dimensions LA Volume (4C A-L) 71 ml LA Volume (BP A-L) 64 ml RA Dimensions RA Systolic Major [place] Length (4C) 5.4 cm 2.1-2.7 RA Area (4C) 20.0 cm2 <=18.0 Report Signatures
[2024-12-06] MEDS: SODIUM CHLORIDE 0.9% IV 1,000 ML 75 ML IV CONT ×2 (00:55→05:35)
[2024-12-06 05:03] LABS: Hematocrit 41.8 % (42.0-52.0); Hemoglobin 13.7 g/dL (14.0-18.0); Mean Corpuscular HGB Conc 32.8 g/dl (32-36); Mean Corpuscular Hemoglobin 32.6 pg (26-34); Mean Corpuscular Volume 99.5 fl (80-100); Mean Platelet Volume 9.8 fl (7.4-10.4); Platelet Count Result 214 k/mm3 (150-375); Red Cell Distribution Width 14.5 % (11.5-14.5)
[2024-12-06 05:16] LABS: Anion Gap 11 mmol/L (4-12); Blood Urea Nitrogen 25 mg/dL (9-20); Calcium 9.3 mg/dL (8.4-10.2); Carbon Dioxide 25 mmol/L (22-30); Chloride 102 mmol/L (98-107); Estimated CRCL calculation 78 ml/min; Estimated Glomerular Filt Rate 52; Glucose 159 mg/dL (65-110); Potassium 4.5 mmol/L (3.4-5.0); Sodium 138 mmol/L (137-145)
[2024-12-06 07:49] LABS: Glucose Point of Care 162 mg/dl (65-105)
[2024-12-06] MEDS: TICAGRELOR 90 MG TABLET PO (08:32)
[2024-12-06] MEDS: carvediloL 12.5 MG TABLET PO (08:32)
[2024-12-06] MEDS: BACLOFEN 10 MG TABLET PO (08:32)
--- NOTE | 2024-12-06 09:31 | P.PNCA_ITS ---
Progress Note: A&P Assessment and Plan (1) Non-ST elevation WI (NSTEMI): Code(s): I21.4 - Non-ST elevation (NSTEMI) myocardial infarction Status: Acute Plan 59-year-old man who is an active smoker with diabetes, hypertension, h yperlipidemia, and morbid obesity presents with chest discomfort Non ST-elevation WI -S/p PCI to the Ramus on 12/05 -Continue aspirin 81 mg p.o. daily and atorvastatin 80 mg every evening -Continue Brilinta 90mg BID for at least 1 year. -Continue Coreg. -TTE pending, patient does not have to wait for the echo read prior to discharge. Hypertension -hydrochlorothiazide 12.5 mg p.o. daily, amlodipine 10 mg p.o. daily and carvedilol 12.5 mg p.o. b.i.d. Hyperlipidemia -atorvastatin 80 mg every evening Active tobacco user -cessation counseling Okay for discharge today from a cardiology standpoint. Will arrange close outpatient follow up with Dr. Santiago. Subjective Date/time seen: 12/06/24 09:31 Interval history: Reason for visit: NSTEMI HPI: 59-year-old man who is an active smoker with diabetes, hypertension, hyperlipidemia, and morbid obesity presents with chest discomfort. He had an episode of chest discomfort last week that lasted for an hour with radiation to jaw. It resolved on its own with rest. About 3 days ago he had recurrence of intermittent chest discomfort also with radiation to the jaw. This persistently worsen in intensity, duration, and frequency finally prompting patient to present to the emergency room for further assistance. Has some associated shortness of breath. He is not very physically active and has not noted is any exacerbating factors. His physical limitations are mostly secondary to orthopedic issues including knee and back problems. Date of service 12/06: Feeling well this morning, no complaints. Review of Systems Cardiovascular: Cardiovascular: Reports as per HPI Exam Const: General: comfortable and no acute distress HENMT: Mouth: Yes moist mucous membranes Eyes: General: appearance normal, both eyes and all related structures Sclera: sclerae normal Resp: Effort & Inspection: normal respiratory effort Cardio: Rate: regular rate Rhythm: regular rhythm Skin: General skin exam: normal color Neuro: Speech: normal speech Psych: Mental Status: mental status grossly normal Affect: normal affect Objective Data Vital Signs Vital Signs: Vital Signs - 24 hr 05/15/25 10:00 12/05/24 10:26 12/05/24 11:26 Temperature 37.1 C Pulse Rate 86 80 Respiratory Rate 20 Blood Pressure 140/60 Pulse Oximetry 95 94 Oxygen Delivery Nasal Cannula Oxygen Flow Rate 2 12/05/24 12:00 12/05/24 12:00 12/05/24 15:00 Temperature Pulse Rate 80 80 Respiratory Rate 20 Blood Pressure 159/83 H Pulse Oximetry 96 96 Oxygen Delivery Nasal Cannula Nasal Cannula Oxygen Flow Rate 2 2 12/05/24 15:15 12/05/24 15:30 12/05/24 15:45 Temperature Pulse Rate 81 80 78 Respiratory Rate 20 22 H 20 Blood Pressure 144/76 H 172/141 H 172/141 H Pulse Oximetry 97 97 97 Oxygen Delivery Nasal Cannula Nasal Cannula Nasal Cannula Oxygen Flow Rate 2 2 2 12/05/24 15:45 12/05/24 16:00 12/05/24 16:00 Temperature Pulse Rate 77 77 Respiratory Rate 17 22 H Blood Pressure 183/127 H 184/161 H Pulse Oximetry 97 97 96 Oxygen Delivery Nasal Cannula Nasal Cannula Nasal Cannula Oxygen Flow Rate 2 2 2 12/05/24 16:15 12/05/24 16:30 12/05/24 16:45 Temperature Pulse Rate 74 74 76 Respiratory Rate 20 18 18 Blood Pressure 146/78 H 143/81 H 138/96 H Pulse Oximetry 97 97 97 Oxygen Delivery Nasal Cannula Nasal Cannula Nasal Cannula Oxygen Flow Rate 2 2 2 12/05/24 16:54 12/05/24 16:59 12/05/24 17:15 Temperature Pulse Rate 75 85 76 Respiratory Rate 17 19 Blood Pressure 150/84 H 163/78 H Pulse Oximetry 97 97 Oxygen Delivery Nasal Cannula Nasal Cannula Oxygen Flow Rate 2 2 12/05/24 17:45 12/05/24 17:45 12/05/24 18:00 Temperature Pulse Rate 79 83 82 Respiratory Rate 18 18 22 H Blood Pressure 150/72 H 136/80 112/57 L Pulse Oximetry 97 99 99 Oxygen Delivery Nasal Cannula Nasal Cannula Nasal Cannula Oxygen Flow Rate 2 2 2 12/05/24 18:00 12/05/24 18:15 12/05/24 18:30 Temperature Pulse Rate 81 78 84 Respiratory Rate 21 H 17 Blood Pressure 111/56 L 112/58 L Pulse Oximetry 99 98 Oxygen Delivery Nasal Cannula Nasal Cannula Oxygen Flow Rate 2 2 12/05/24 18:45 12/05/24 19:00 12/05/24 19:42 Temperature 36.3 C L Pulse Rate 77 81 75 Respiratory Rate 18 22 H 16 Blood Pressure 126/68 100/47 L 123/72 Pulse Oximetry 97 98 98 Oxygen Delivery Nasal Cannula Nasal Cannula Oxygen Flow Rate 2 2 12/05/24 20:00 12/05/24 20:00 12/05/24 20:00 Temperature Pulse Rate 73 78 Respiratory Rate Blood Pressure 130/66 Pulse Oximetry 98 Oxygen Delivery Nasal Cannula Oxygen Flow Rate 2 12/05/24 20:45 12/05/24 21:04 12/05/24 22:00 Temperature Pulse Rate 73 74 75 Respiratory Rate Blood Pressure 139/75 Pulse Oximetry Oxygen Delivery Oxygen Flow Rate 12/05/24 23:45 12/06/24 00:00 12/06/24 00:00 Temperature 36.5 C Pulse Rate 71 71 Respiratory Rate 20 Blood Pressure 136/59 L Pulse Oximetry 99 Oxygen Delivery Room Air Oxygen Flow Rate 12/06/24 02:00 12/06/24 04:00 12/06/24 04:00 Temperature 36.7 C Pulse Rate 78 76 Respiratory Rate 20 Blood Pressure 127/58 L Pulse Oximetry 98 Oxygen Delivery Room Air Oxygen Flow Rate 12/06/24 04:00 12/06/24 06:00 12/06/24 07:29 Temperature 36.4 C Pulse Rate 76 68 75 Respiratory Rate 22 H Blood Pressure 126/63 Pulse Oximetry 95 Oxygen Delivery Oxygen Flow Rate Intake/Output Intake/Output: Intake & Output 12/03/24 12/04/24 12/05/24 12/06/24 23:59 23:59 23:59 23:59 Intake Total 1306.7 850 Output Total 925 Balance 381.7 850 Meds/Results Medications: Active Medications Generic Name Dose Route Start Last Admin Trade Name Freq PRN Reason Stop Dose Admin Acetaminophen 650 mg 12/05/24 07:58 12/05/24 15:50 Acetaminophen 325 Mg Tablet PO 650 mg Q6H PRN Administration Mild Pain (1-3) or Fever Amlodipine Besylate 10 mg 12/05/24 21:00 12/05/24 16:53 Amlodipine Besylate 10 Mg Tablet PO 10 mg HS BAMBI Administration Aspirin 81 mg 12/05/24 21:00 12/05/24 20:29 Aspirin 81 Mg Enteric Tablet PO 81 mg HS BAMBI Administration Atorvastatin Calcium 80 mg 12/05/24 21:00 12/05/24 20:29 Atorvastatin 40 Mg Tablet PO 80 mg HS BAMBI Administration Baclofen 10 mg 12/05/24 04:27 12/06/24 08:32 Baclofen 10 Mg Tablet PO 10 mg TID PRN Administration muscle spasm Carvedilol 12.5 mg 12/05/24 21:00 12/06/24 08:32 Carvedilol 12.5 Mg Tablet PO 12.5 mg Q12HR BAMBI Administration Dextrose 12.5 gm 12/05/24 04:05 Dextrose 50% 25 Gm/50 Ml Syringe IV PUSH PRN PRN Hypoglycemia Protocol Fenofibrate 145 mg 12/05/24 21:00 12/05/24 20:29 Fenofibrate Nanocrystallized 145 Mg Tablet PO 145 mg HS BAMBI Administration Glucagon 1 mg 12/05/24 04:05 Glucagon For Inj 1 Mg Vial IM PRN PRN Hypoglycemia Protocol Glucose 15 gm 12/05/24 04:05 Glucose Oral Gel 15 Gm Of Glucse In 37.5 Gm Tube PO PRN PRN Hypoglycemia Protocol Hydrochlorothiazide 12.5 mg 12/05/24 21:00 12/05/24 20:29 Hydrochlorothiazide 12.5 Mg Capsule PO 12.5 mg HS BAMBI Administration Dextrose 1,000 mls @ 100 mls/hr 12/05/24 04:05 Dextrose 5% 1,000 Ml IVPB PRN PRN Hypoglycemia Protocol Sodium Chloride 1,000 mls @ 75 mls/hr 12/05/24 04:35 12/06/24 05:35 Normal Saline Iv IV CONT 75 mls/hr .[id number] BAMBI Administration Insulin Aspart 3 - 6 units 12/05/24 08:00 12/06/24 08:22 Insulin Aspart (*Bkc) 100 Units/Ml SUB-Q Not Given TIDWM BABMI Protocol Insulin Aspart 1 - 3 units 12/05/24 21:00 12/05/24 20:31 Insulin Aspart (*Bkc) 100 Units/Ml SUB-Q Not Given HS BAMBI Protocol Morphine Sulfate 2 mg 12/05/24 09:55 Morphine Sulfate (*Crx) 2 Mg/Ml Inj IV PUSH Q4H PRN Pain Rated 7-10 Perflutren Lipid Microsphere 0 ml 12/05/24 04:26 Perflutren Lipid Microspheres 1.5 Ml Vial Diluted To 10 Ml Total Volume IV PUSH 12/08/24 04:26 ONCE PRN adequate visualization Protocol Ticagrelor 90 mg 12/05/24 21:00 12/06/24 08:32 Ticagrelor 90 Mg Tablet PO 90 mg Q12HR BAMBI Administration Radiology Results: ITS Impressions Chest X-Ray 12/05/24 05:14 Impression: Clear lungs. Cardiomegaly. Labs Labs: Laboratory Results - last 24 hr 12/05/24 12/05/24 12/05/24 06:54 11:18 14:12 WBC RBC Hgb Hct MCV MCH MCHC RDW Plt Count MPV Activ Coag Time Kaolin 199 H Sodium 139 Potassium 4.7 Chloride 106 Carbon Dioxide 21 L Anion Gap 12 BUN 31 H Creatinine 1.30 Estim Creat Clear Calc 84 Estimated GFR 57 L Glucose 186 H POC Capillary Glucose 192 H Calcium 10.3 H 12/05/24 12/05/24 12/05/24 14:41 17:32 19:30 WBC RBC Hgb Hct MCV MCH MCHC RDW Plt Count MPV Activ Coag Time Kaolin 273 H Sodium Potassium Chloride Carbon Dioxide Anion Gap BUN Creatinine Estim Creat Clear Calc Estimated GFR Glucose POC Capillary Glucose 197 H 171 H Calcium 12/06/24 12/06/24 04:55 07:13 WBC 12.0 H RBC 4.20 L Hgb 13.7 L Hct 41.8 L MCV 99.5 MCH 32.6 MCHC 32.8 RDW 14.5 Plt Count 214 MPV 9.8 Activ Coag Time Kaolin Sodium 138 Potassium 4.5 Chloride 102 Carbon Dioxide 25 Anion Gap 11 BUN 25 H Creatinine 1.40 H Estim Creat Clear Calc 78 Estimated GFR 52 L Glucose 159 H POC Capillary Glucose 162 H Calcium 9.3
--- NOTE | 2024-12-06 11:09 | P.DS_ITS ---
DS: Admitting Diagnosis Discharge Date 12/06/24 Admitting Diagnosis NSTEMI DS: Discharge Diagnosis Discharge Diagnosis (1) Hypertension: Qualifiers: Hypertension type: essential hypertension Qualified Code(s): I10 - Essential (primary) hypertension Code(s): I10 - Essential (primary) hypertension Status: Acute (2) Non-ST elevation [place] (NSTEMI): Code(s): I21.4 - Non-ST elevation (NSTEMI) myocardial infarction Status: Acute (3) Hyperlipidemia: Qualifiers: Hyperlipidemia type: mixed hyperlipidemia Qualified Code(s): E78.2 - Mixed hyperlipidemia Code(s): E78.5 - Hyperlipidemia, unspecified Status: Acute (4) Elevated cholesterol: Code(s): E78.00 - Pure hypercholesterolemia, unspecified Status: Acute (5) Diabetes mellitus: Qualifiers: Diabetes mellitus complication status: without complication Diabetes mellitus intermission coordinator insulin use: without nursing home use Diabetes mellitus type: type 2 Qualified Code(s): E11.9 - Type 2 diabetes mellitus without complications Code(s): E11.9 - Type 2 diabetes mellitus without complications Status: Acute Plan Non-ST elevation [place] --Continue aspirin 81 mg p.o. daily and atorvastatin 80 mg every evening -Continue Brilinta 90mg BID for at least 1 year. -Continue Coreg. -Cardiology on board -Echocardiogram pending, patient will follow with result as outpatient -Denies any illicit drug use -Reviewed EKG and CXR Type 2 diabetes mellitus Moderate sliding scale Hypoglycemia protocol Hold metformin HLD Continue atorvastatin 80 mg p.o. q.h.s. Hypertriglyceridemia Continue fenofibrate 160 mg p.o. q.h.s. HTN Continue amlodipine COURTNEY Hold [id number] hydrochlorothiazide 12.5 mg p.o. HS. resume in 2 days Avoid nephrotoxic drugs Trend BUN and creatinine Gentle fluid resuscitation LÓPEZ Continue home CPAP DVT prophylaxis: On heparin drip DS: Summary Hospital Course Hospital Course: -per HPI: A 59-year-old male patient with a past medical history of hypertension, diabetes, high cholesterol, tobacco use, and morbid obesity presented to the ED due to chest pain. Per chart review, the patient has had chest pain for the last 2 days, which has been radiating to the jaw and his left shoulder. The pain was intermittent, but the previous episode at 9:30 p.m. was a little more severe, and I came to the ED. Pertinent ED labs: WBC 10.9, hemoglobin 14.1, hematocrit 42, platelet 206, sodium 138, potassium 4.6, BUN 35, creatinine 1.36, GFR 54, glucose 348 Troponin :3.5>5.330 EKG: Sinus rhythm, nonspecific ST and T-wave abnormality 12/06/24 Patient was seen and examined at bedside. he still has chest pain but getting better. chest pain improving cardiology team has been consulted. patient underwent cardiac cath. S/p PCI to the [facility]us on 12/05 -Continue aspirin 81 mg p.o. daily and atorvastatin 80 mg every evening -Continue Brilinta 90mg BID for at least 1 year. -Continue Coreg. Status at Discharge Overall status at discharge: patient is back to baseline Time Spent with Patient Time attestation: Total time spent providing and/or coordinating discharge services: Time spent: Greater than 30 minutes Exam Narrative: APPEARANCE: Morbidly obese, appears uncomfortable Head: atraumatic. EYES: EOMI, NOSE: Atraumatic NECK: Trachea midline RESPIRATORY: No increased rate of breathing clear to auscultation CARDIOVASCULAR: RRR, no peripheral edema ABDOMINAL: Obese, nontender MUSCULOSKELETAl: No obvious deformities NEURO: Alert. Moving 4/4 extremities SKIN:: Warm, dry. Normal color PSYCHIATRIC: Normal affect DS: Data Data Completed and Pending Labs on day of discharge: Labs from last 24 hours 12/06/24 12/06/24 12/05/24 07:13 04:55 19:30 WBC 12.0 H RBC 4.20 L Hgb 13.7 L Hct 41.8 L MCV 99.5 MCH 32.6 MCHC 32.8 RDW 14.5 Plt Count 214 MPV 9.8 Activ Coag Time Kaolin Sodium 138 Potassium 4.5 Chloride 102 Carbon Dioxide 25 Anion Gap 11 BUN 25 H Creatinine 1.40 H Estim Creat Clear Calc 78 Estimated GFR 52 L Glucose 159 H POC Capillary Glucose 162 H 171 H Calcium 9.3 12/05/24 12/05/24 12/05/24 17:32 14:41 14:12 WBC RBC Hgb Hct MCV MCH MCHC RDW Plt Count MPV Activ Coag Time Kaolin 273 H 199 H Sodium Potassium Chloride Carbon Dioxide Anion Gap BUN Creatinine Estim Creat Clear Calc Estimated GFR Glucose POC Capillary Glucose 197 H Calcium 12/05/24 12/05/24 11:18 06:54 WBC RBC Hgb Hct MCV MCH MCHC RDW Plt Count MPV Activ Coag Time Kaolin Sodium 139 Potassium 4.7 Chloride 106 Carbon Dioxide 21 L Anion Gap 12 BUN 31 H Creatinine 1.30 Estim Creat Clear Calc 84 Estimated GFR 57 L Glucose 186 H POC Capillary Glucose 192 H Calcium 10.3 H Discharge Plan Discharge Attending physician on discharge: Jumana Avila Consulting providers: Mikayla Woods Discharging Clinician: Jumana Avila Patient Disposition: Home Activity: as tolerated Diet: heart healthy Patient Instructions: Antibiotic Form, Blood Thinners (GEN) Patient Language: Turkmen Stand Alone Forms: General Discharge Information Follow-up/Referrals: Rafat Santiago MD [Physician] - Call for Appointment Devang Sanchez DO [Primary Care Provider] - 1 Week Discharge Medications: New carvedilol [Coreg] 12.5 mg Tablet 12.5 mg PO Q12HR Qty: 60 0RF ticagrelor [Brilinta] 90 mg Tablet 90 mg PO Q12HR Qty: 60 0RF Continued aspirin [Adult Low Dose Aspirin] 81 mg tablet,delayed release (DR/EC) 81 mg PO HS Centrum Silver Men 300-600-300 mcg tablet 1 tablet PO HS baclofen 10 mg tablet 10 mg PO TID PRN (Reason: muscle spasm) Qty: 20 1RF omega-3 fatty acids [Fish Oil Concentrate] 1,000 mg capsule 4,000 mg PO HS triamcinolone acetonide 0.1 % lotion 1 applic topical BID PRN (Reason: rash) Qty: 60 0RF atorvastatin 80 mg tablet 80 mg PO HS amlodipine 10 mg tablet 10 mg PO HS metformin 1,000 mg tablet 2,000 mg PO HS irbesartan-hydrochlorothiazide 300-12.5 mg tablet 1 tablet PO HS fenofibrate 160 mg tablet 160 mg PO HS Discontinued ibuprofen 200 mg tablet 600 mg PO TID PRN (Reason: fever or pain) hydrochlorothiazide 12.5 mg tablet 12.5 mg PO HS Date of admission: 12/05/24 01:41 Primary Care Provider: Devang Sanchez Admitting Provider: aSleem Gresham Attending physician on admission: Jumana Avila Condition: Stable Care Plan Goals: -Continue aspirin 81 mg p.o. daily and atorvastatin 80 mg every evening -Continue Brilinta 90mg BID for at least 1 year. -Continue Coreg. -TTE pending report, follow as outpatient
[2024-12-06 11:12] LABS: Glucose Point of Care 176 mg/dl (65-105)
== END 2024-12-06 13:21 | disposition home or self-care (01) | DRG 322 ==
LOC: ANHED 12-05 01:41 → ANHIMU 12-05 01:58
PROVIDERS: Internal Medicine; Admitting Provider General Practice; Emergency Provider Emergency Medicine; PCP Internal Medicine; Visit Provider Internal Medicine
PROC: 4A023N7 Measurement of Cardiac Sampling and Pressure, Left Heart, Percutaneous Approach (ICD-10-PCS; CPT 93452; principal; 2024-12-05 13:00)
PROC: 027034Z Dilation of Coronary Artery, One Artery with Drug-eluting Intraluminal Device, Percutaneous Approach (ICD-10-PCS; 2024-12-05 13:00)
PROC: 027034Z Dilation of Coronary Artery, One Artery with Drug-eluting Intraluminal Device, Percutaneous Approach (ICD-10-PCS; CPT 92979; 2024-12-05 13:00)
PROC: 027034Z Dilation of Coronary Artery, One Artery with Drug-eluting Intraluminal Device, Percutaneous Approach (ICD-10-PCS; CPT 92928; 2024-12-05 13:00)
DX: I21.4 Non-ST elevation (NSTEMI) myocardial infarction (principal); N17.9 Acute kidney failure, unspecified; Z68.43 Body mass index [BMI] 50.0-59.9, adult; I10 Essential (primary) hypertension; E11.9 Type 2 diabetes mellitus without complications; E78.2 Mixed hyperlipidemia; E66.01 Morbid (severe) obesity due to excess calories; E78.1 Pure hyperglyceridemia; G47.30 Sleep apnea, unspecified; F17.210 Nicotine dependence, cigarettes, uncomplicated; Z96.659 Presence of unspecified artificial knee joint; Z79.82 Long term (current) use of aspirin; Z98.1 Arthrodesis status
CPT/HCPCS: 36415; 71046; 80048; 80053; 81025; 82948; 83036; 83690; 84484; 85025; 85027; 85610; 85730; 92978; 92979; 93005; 93306; 93458; 96374; 96375; 96376; 99285; A9270; C1725; C1753; C1769; C1874; C1887; C1894; C9600; J1644; J2003; J2250; J2270; J2305; J3010; J7030

== ENCOUNTER 2024-12-18 09:41 | Observation (INO) | payer MEDICARE, SELFPAY ==
[2024-12-18] VITALS (9 sets, daily range): BP systolic 100–138; BP diastolic 49–68; PULSE 60–72; RESP 13–22; TEMP 36.1–36.4; O2SAT 94–100; BMI 53.6
--- NOTE | 2024-12-18 10:02 | ECG_ITS ---
Test Date: 2024-12-18 10:08:06 Measurements Intervals [place] Rate: 65 P: 63 WV: 181 QRS: 39 QRSD: 114 T: 31 QT: 390 QTc: 405 Interpretive Statements SINUS RHYTHM Compared to ECG 12/05/2024 00:47:30 T-wave abnormality no longer present Electronically Signed On 12-19-2024 15:00:30 CDT by Rafat Santiago M.D.
--- NOTE | 2024-12-18 10:12 | ED_ITS ---
HPI - Recheck/Abnormal Lab/Rx General Chief Complaint: Recheck/Abnormal Lab/Rx Stated Complaint: sent by PCP for abnormal labs Time Seen by Provider: 12/18/24 10:11 Source: patient Mode of arrival: ambulatory Limitations: no limitations History of Present Illness HPI narrative: This is a 59-year-old male that presents to the ER for abnormal outpatient blood work. Patient was recently admitted for NSTEMI. Had outpatient blood work yesterday which showed abnormal kidney function. His PCP told him to come to the ER. He reports he has been feeling fairly well since being discharged. He has been trying to eat mostly fruits and vegetables. Reports he has been having some looser stools due to this. He also does not believe he has been drinking enough water. Denies chest pain, shortness of breath. Related Data Home Medications ?Medication ?Instructions ?Recorded ?Confirmed ?Last Taken ?Type aspirin 81 mg tablet,delayed 81 mg PO HS 05/28/19 12/05/24 12/03/24 History release (Adult Low Dose Aspirin) omega-3 fatty acids 1,000 mg 4,000 mg PO HS 06/19/20 12/05/24 12/03/24 History capsule (Fish Oil Concentrate) [id number] 300 mcg-K 60 1 tablet PO HS 10/28/21 12/05/24 12/03/24 History mcg-lycop 600 mcg-lutein 300 mcg tablet (Centrum Silver Men) amlodipine 10 mg tablet 10 mg PO HS 12/05/24 12/05/24 12/03/24 History atorvastatin 80 mg tablet 80 mg PO HS 12/05/24 12/05/24 12/03/24 History fenofibrate 160 mg tablet 160 mg PO HS 12/05/24 12/05/24 12/03/24 History irbesartan 300 1 tablet PO HS 12/05/24 12/05/24 12/03/24 History mg-hydrochlorothiazide 12.5 mg tablet metformin 1,000 mg tablet 2,000 mg PO HS 12/05/24 12/05/24 12/03/24 History Allergies Allergy/AdvReac Type Severity Reaction Status Date / Time No Known Allergies Allergy Verified 12/18/24 09:42 Review of Systems 2 Review of Systems: CONSTITUTIONAL: Denies fever CARDIOVASCULAR: Denies chest pain RESPIRATORY: Denies dyspnea. GASTROINTESTINAL: Denies abdominal pain, nausea, vomiting All systems reviewed & are unremarkable except as noted in HPI and below PMFSH Past Medical History Medical History Gout Non-ST elevation CT (NSTEMI) Diabetes mellitus Hyperlipidemia Tobacco abuse Elevated cholesterol Rotator cuff injury Hypertension Arthritis Sleep apnea On CPAP Cervical vertebral fusion C6 - C7 plates and screws. Surgical History Surgical History H/O cervical spine surgery C6-7 plates and screws S/P cubital tunnel release History of carpal tunnel surgery History of knee replacement Family History Family History Mother Family history of mental disorder Hypertension Anxiety Osteoarthritis Father Hypertension Heart attack Grandparent Heart attack Social History Social History Smoking packs per day: 2.0 Smoking cigarettes per day: 40.0 Years smoked: 45 Smoking pack-years: 90.00 Smoking status: Current every day smoker Tobacco type: cigarettes Alcohol intake: current Drinks per week: 6 Alcohol use details: once a week Substance use: current Substance use type: marijuana Last use: 11/29/2024 Do You Feel Safe in your Home?: Yes Lack of Transportation: No Lack of Food: Never True Current Housing: I Have Housing Concerned About Future Housing: No Difficulty Paying Gas/Electric Bills: No Difficulty Paying for Meds: No Currently Unemployed: No Education: High School Diploma/GED Difficulty w/ Childcare or Family Care: No Gender identity (if verbalized by the patient): Male Spiritual care concerns: No Exam 2 Narrative: GENERAL: Well-appearing, well-nourished, and in no acute distress. HEAD: Normocephalic, atraumatic. EYES: EOMI. ENT: Nares clear, no rhinorrhea or epistaxis. Mucous membranes moist. Oropharynx without tonsillar hypertrophy exudate or other lesions. NECK: Supple. No adenopathy or masses. CHEST: Clear to auscultation. No respiratory distress. No wheezes rales or rhonchi HEART: Regular rate and rhythm. No murmur heard. Normal peripheral pulses. ABDOMEN: Soft, nontender, nondistended, normal active bowel sounds. EXTREMITIES: Normal range of motion. No edema. SKIN: Warm, dry, no rash. NEURO: No focal deficits. Alert and oriented x3. PSYCH: Normal mood and affect Course Course Emergency Course: patient updated on his workup and recommendation for admission Consultations Consultation #1: Spoke with hospitalist about patient and workup who accepts admission Date: 12/18/24 Vital Signs Vital signs: Vital Signs Temperature 97.6 F 12/18/24 09:48 Pulse Rate 69 12/18/24 09:48 Respiratory Rate 18 12/18/24 09:48 Blood Pressure 138/49 L 12/18/24 09:48 Pulse Oximetry 100 12/18/24 09:48 Oxygen Delivery Room Air 12/18/24 09:48 Temperature 97.6 F 12/18/24 09:48 Pulse Rate 69 12/18/24 09:48 Respiratory Rate 22 H 12/18/24 12:13 Blood Pressure 138/49 L 12/18/24 09:48 Pulse Oximetry 96 12/18/24 12:13 Oxygen Delivery Room Air 12/18/24 09:48 MDM - Recheck/Abnormal Lab/Rx MDM Narrative Medical decision making narrative: Patient presents to the ER for abnormal outpatient blood work. Patient recently was admitted for NSTEMI. Had outpatient blood work yesterday which showed elevated creatinine and potassium. Presents for further management. His vitals are stable. Cbc without leukocytosis. Metabolic panel with kidney function that is mildly worse than yesterday. Creatinine is now 2.25, BUN of 75, potassium of 5.7. Urine is consistent with infection. Patient will be started on IV antibiotics. Patient hydrated in the ER, will be admitted for further management Differential Diagnosis Differential diagnosis: Likely other (acute kidney injury, dehydration, electrolyte derangement) Lab Data Attestation: I reviewed the patient's lab results. 12/18/24 10:26 12/18/24 10:26 Labs: Lab Results 12/18/24 12/18/24 Range/Units 10:26 12:20 WBC 8.7 (4.5-10.0) K/mm3 RBC 4.17 L (4.6-6.20) M/mm3 Hgb 13.5 L (14.0-18.0) g/dL Hct 41.1 L (42.0-52.0) % MCV 98.6 (80-100) fl MCH 32.4 (26-34) pg MCHC 32.8 (32-36) g/dl RDW 14.2 (11.5-14.5) % Plt Count 236 (150-375) k/mm3 MPV 9.9 (7.4-10.4) fl Immature Gran % (Auto) 0.3 (0-0.5) % Neut % (Auto) 62.2 (45.5-73.1) % Lymph % (Auto) 26.8 (18.3-44.2) % [place] % (Auto) 7.6 (2.6-8.5) % Eos % (Auto) 2.2 (0-4.4) % Baso % (Auto) 0.9 (0.2-1.2) % Lymph # (Auto) 2.33 (0.9-3.2) K/mm3 [place] # (Auto) 0.7 H (0.1-0.6) K/mm3 Eos # (Auto) 0.2 (0-0.3) K/mm3 Baso # (Auto) 0.1 (0.0-0.1) K/mm3 Abs Immat Gran (auto) 0.03 (0.00-0.031) K/mm3 Absolute Neuts (auto) 5.4 (1.3-6.7) K/mm3 Absolute Nucleated RBC 0.000 (0.0-0.012) K/mm3 Nucleated RBC % 0.0 (0.0-0.2) % Sodium 137 (137-145) mmol/L Potassium 5.7 H (3.4-5.0) mmol/L Chloride 107 (98-107) mmol/L Carbon Dioxide 19 L (22-30) mmol/L Anion Gap 11 (4-12) mmol/L BUN 75 H D (9-20) mg/dL Creatinine 2.25 H (0.7-1.3) mg/dL Estim Creat Clear Calc 48 ml/min Estimated GFR 30 L (59 - ) Glucose 132 H (65-110) mg/dL Calcium 10.1 (8.4-10.2) mg/dL Total Bilirubin 0.7 (0.2-1.3) mg/dL AST 45 (17-59) U/L ALT 44 (6-50) U/L Alkaline Phosphatase 65 (38-126) U/L Total Protein 9.0 H (6.3-8.2) g/dL Albumin 4.6 (3.5-5.1) g/dL Urine Color Yellow (Yellow) Urine Appearance Clear (Clear) Urine pH 5.0 (5.0-9.0) Ur Specific Fisher 1.016 (1.001-1.035) Urine Protein 2+ H (Negative) mg/dL Urine Glucose (UA) Negative (Negative) mg/dL Urine Ketones Negative (Negative) mg/dL Ur Blood (Man) 1+ H (Negative) Urine Nitrate Positive H (Negative) Urine Bilirubin Negative (Negative) Urine Urobilinogen 0.2 (<2.0) mg/dL Add Ur Microanalysis Reviewed Leukocyte Esterase Rfl 2+ H (Negative) SAW/UL Urine RBC 0-2 (0-2) /hpf Urine WBC 51-100 H (0-3) /hpf Ur Squamous Epith Cells Occasional (Few) /hpf Urine Bacteria None seen /hpf Urine Casts 3-5 ECG Data EKG #1: ECG completion date: 12/18/24 EKG Interpretation: normal rate, sinus rhythm, no ST changes and normal QT Critical Care Time Critical Care Time Critical Care Time: Yes Total Critical Care Time: 35 Discharge Plan Discharge Clinical Impression: Acute kidney injury, Hyperkalemia Patient Disposition: Still a Patient Condition: Stable
[2024-12-18 10:39] LABS: Basophils Absolute Auto 0.1 K/mm3 (0.0-0.1); Basophils Percent Auto 0.9 % (0.2-1.2); Eosinophils Absolute Auto 0.2 K/mm3 (0-0.3); Eosinophils Percent Auto 2.2 % (0-4.4); Hematocrit 41.1 % (42.0-52.0); Hemoglobin 13.5 g/dL (14.0-18.0); Immature Granulocyte Absolute 0.03 K/mm3 (0.00-0.031); Immature Granulocyte Percent A 0.3 % (0-0.5); Lymphocytes Absolute Auto 2.33 K/mm3 (0.9-3.2); Lymphocytes Percent Auto 26.8 % (18.3-44.2); Mean Corpuscular HGB Conc 32.8 g/dl (32-36); Mean Corpuscular Hemoglobin 32.4 pg (26-34); Mean Corpuscular Volume 98.6 fl (80-100); Mean Platelet Volume 9.9 fl (7.4-10.4); Monocytes Absolute Auto 0.7 K/mm3 (0.1-0.6); Monocytes Percent Auto 7.6 % (2.6-8.5); Neutrophils Absolute Auto 5.4 K/mm3 (1.3-6.7); Neutrophils Percent Auto 62.2 % (45.5-73.1); Platelet Count Result 236 k/mm3 (150-375); Red Blood Count 4.17 M/mm3 (4.6-6.20); Red Cell Distribution Width 14.2 % (11.5-14.5); White Blood Count 8.7 K/mm3 (4.5-10.0)
[2024-12-18 10:48] LABS: Alanine Aminotransferase 44 U/L (6-50); Albumin Level 4.6 g/dL (3.5-5.1); Alkaline Phosphatase 65 U/L (38-126); Anion Gap 11 mmol/L (4-12); Aspartate Amino Transferase 45 U/L (17-59); Bilirubin,Total 0.7 mg/dL (0.2-1.3); Blood Urea Nitrogen 75 mg/dL (9-20); Calcium 10.1 mg/dL (8.4-10.2); Carbon Dioxide 19 mmol/L (22-30); Chloride 107 mmol/L (98-107); Estimated CRCL calculation 48 ml/min; Estimated Glomerular Filt Rate 30; Glucose 132 mg/dL (65-110); Potassium 5.7 mmol/L (3.4-5.0); Sodium 137 mmol/L (137-145)
[2024-12-18] MEDS: SODIUM CHLORIDE 0.9% IV 500 ML 999 ML IV CONT (12:10)
[2024-12-18 12:46] LABS: Add Urine Microscopic? YES; Appearance Urine Clear (Clear); Bacteria Urine None Seen /hpf; Bilirubin Urine Negative (Negative); Blood Urine 1+ (Negative); Color Urine Yellow (Yellow); Glucose Urine UA Negative (Negative); Ketones Urine Negative (Negative); Leukocyte Esterase Ur 2+ LEU/UL (Negative); Need Manual Microscopic Reviewed; Nitrate Urine Positive (Negative); Protein Urine 2+ mg/dL (Negative); RBC Urine 0-2 /hpf (0-2); Specific Grav Ur 1.016 (1.001-1.035); Squamous Epithelial Cell Urine Occasional /hpf (Few); Urobilinogen Urine 0.2 mg/dL (<2.0); WBC Urine 51-100 /hpf (0-3)
--- NOTE | 2024-12-18 13:04 | PM.IMHP ---
H&P: HPI History of Present Illness Date/Time: 12/18/24 13:04 Chief Complaint: Abnormal Labs Narrative: 59 y/o M with PMH of [place] s/p stent placement, HTN, sleep apnea, HLD, and DM presents here with abnormal outpatient labs. Is here from home for further evaluation of abnormal outpatient labs that were drawn on 12/17. He reports his PCP contacted him to let him know that he had abnormal kidney labs and that his potassium was 5.6. Abnormal labs were precipitated by a recent NSTEMI that was treated via stent placement on 12/05. He was discharged from [facility] on 12/06 with a creatinine of 1.4 and GFR 52. Outpatient labs reviewed and showed a creatinine of 2.18 and GFR 34 with a potassium of 5.6. Repeat labs upon arrival showed a potassium of 5.7, creatinine of 2.25 with a GFR 30. Since NSTEMI the patient reports he has made significant diet changes (eating fruits and vegetables) and has been compliant with his prescription medications. The patient is also reporting diarrhea with the diet changes/at discharge. Estimates he has 2 BMs in a 24 hour period - states there will be waves of diarrhea while on toilet (2-3). He denies accompanying fever, chills, nausea, vomiting, or abdominal pain. Initial VS at presentation: 97.6? F, HR 69, R 18, 138/49, and 100% on RA. ED workup showed: No leukocytosis, hemoglobin 13.5 (similar to previous), potassium 5.7, creatinine 2.25 and GFR 30, glucose 132, and UA consistent with UTI. EKG showed sinus rhythm, moderate intraventricular conduction delay, rate 65. Review of Systems Review of Systems: All systems reviewed & are unremarkable except as noted in HPI and below [facility] Past Medical History Medical History Gout Non-ST elevation [place] (NSTEMI) Diabetes mellitus Hyperlipidemia Tobacco abuse Elevated cholesterol Rotator cuff injury Hypertension Arthritis Sleep apnea On CPAP Cervical vertebral fusion C6 - C7 plates and screws. Surgical History Surgical History H/O cervical spine surgery C6-7 plates and screws S/P cubital tunnel release History of carpal tunnel surgery History of knee replacement Family History Family History Mother Family history of mental disorder Hypertension Anxiety Osteoarthritis Father Hypertension Heart attack Grandparent Heart attack Social History Social History Smoking packs per day: 1 Smoking cigarettes per day: 20.0 Years smoked: 45 Smoking pack-years: 45.00 Smoking status: Current every day smoker Tobacco type: cigarettes Alcohol intake: current Drinks per week: 6 Alcohol use details: once a week Substance use: current Substance use type: marijuana Last use: 11/29/2024 Do You Feel Safe in your Home?: Yes Lack of Transportation: No Lack of Food: Never True Current Housing: I Have Housing Concerned About Future Housing: No Difficulty Paying Gas/Electric Bills: No Difficulty Paying for Meds: No Currently Unemployed: No Education: High School Diploma/GED Difficulty w/ Childcare or Family Care: No Gender identity (if verbalized by the patient): Male Spiritual care concerns: No Meds Home Medications and Allergies Home Medications ?Medication ?Instructions ?Recorded ?Confirmed ?Type aspirin 81 mg tablet,delayed 81 mg PO HS 05/28/19 12/18/24 History release (Adult Low Dose Aspirin) omega-3 fatty acids 1,000 mg 4,000 mg PO HS 06/19/20 12/18/24 History capsule (Fish Oil Concentrate) [id number] 300 mcg-K 60 1 tablet PO HS 10/28/21 12/18/24 History mcg-lycop 600 mcg-lutein 300 mcg tablet (Centrum Silver Men) baclofen 10 mg tablet 10 mg PO TID PRN muscle spasm #20 04/29/24 12/18/24 Rx tabs triamcinolone acetonide 0.1 % 1 applic topical BID PRN rash #60 05/13/24 12/18/24 Rx lotion mL amlodipine 10 mg tablet 10 mg PO HS 12/05/24 12/18/24 History atorvastatin 80 mg tablet 80 mg PO HS 12/05/24 12/18/24 History fenofibrate 160 mg tablet 160 mg PO HS 12/05/24 12/18/24 History irbesartan 300 1 tablet PO HS 12/05/24 12/18/24 History mg-hydrochlorothiazide 12.5 mg tablet metformin 1,000 mg tablet 2,000 mg PO HS 12/05/24 12/18/24 History carvedilol 12.5 mg tablet (Coreg) 12.5 mg PO Q12HR #60 tabs 12/06/24 12/18/24 Rx clopidogrel 75 mg tablet (Plavix) 75 mg PO HS 12/18/24 12/18/24 History melatonin 10 mg capsule 80 mg PO HS 12/18/24 12/18/24 History Allergies Allergy/AdvReac Type Severity Reaction Status Date / Time No Known Allergies Allergy Verified 12/18/24 14:09 Vital Signs Vital Signs - 24 hr 12/18/24 09:48 12/18/24 12:13 Temperature 97.6 F Pulse Rate 69 Respiratory Rate 18 22 H Blood Pressure 138/49 L Pulse Oximetry 100 96 Oxygen Delivery Room Air Exam Const: General: comfortable and no acute distress Other: , male, obese body habitus, nontoxic appearing HENMT: Face/Nose/Sinus: Normal nares present Mouth: Yes moist mucous membranes Eyes: General: appearance normal, both eyes and all related structures Sclera: sclerae normal Pupils: Equal, round and reactive pupils present EOM: EOMs intact bilaterally Resp: Effort & Inspection: normal respiratory effort Auscultation: clear to auscultation bilaterally Cardio: Rate: regular rate Rhythm: regular rhythm Other: S1-S2 present without murmur, rub, ectopy GI: Other: Abdomen soft, nondistended, nontender. Normoactive bowel sounds in all quadrants. Skin: General skin exam: normal color and no rashes or lesions noted Wounds: no wounds Neuro: Speech: normal speech Motor exam (neuro): 5/5 motor strength present throughout Sensory Exam: normal sensation Other: A&O x4 Extrem: Other: trace edema to bilateral lower extremities, nonpitting Psych: Mental Status: mental status grossly normal Affect: normal affect Other: good insight judgment, pleasant H&P: Results Labs Labs: Short CBC 12/18/24 Range/Units 10:26 WBC 8.7 (4.5-10.0) K/mm3 Hgb 13.5 L (14.0-18.0) g/dL Hct 41.1 L (42.0-52.0) % Plt Count 236 (150-375) k/mm3 [facility] 12/18/24 10:26 Sodium 137 Potassium 5.7 H Chloride 107 Carbon Dioxide 19 L BUN 75 H D Creatinine 2.25 H Glucose 132 H Calcium 10.1 Liver Function 12/18/24 Range/Units 10:26 Total Bilirubin 0.7 (0.2-1.3) mg/dL AST 45 (17-59) U/L ALT 44 (6-50) U/L Alkaline Phosphatase 65 (38-126) U/L Albumin 4.6 (3.5-5.1) g/dL Urine 12/18/24 Range/Units 12:20 Urine Color Yellow (Yellow) Urine Appearance Clear (Clear) Urine pH 5.0 (5.0-9.0) Ur Specific [place] 1.016 (1.001-1.035) Urine Protein 2+ H (Negative) mg/dL Urine Glucose (UA) Negative (Negative) mg/dL Assessment and Plan Assessment and plan (1) Acute kidney injury: Code(s): N17.9 - Acute kidney failure, unspecified Status: Acute Assessment and Plan: - creatinine 2.25 and GFR 30, previously 1.4 and GFR 52 on 12/06 - suspect injury is multifactorial including possibility of recent cardiogenic hypotension/contrast induced nephropathy due to cardiac catheterization with stent placement, patient also found to have a UTI, dehydration secondary to diarrhea. Plan for rehydration over the next 24 hours, if no improvement with antibiotics and IV fluids, consider further workup and nephrology consultation. - trend renal function - trend electrolytes, correct as needed (2) Hyperkalemia: Code(s): E87.5 - Hyperkalemia Status: Acute Assessment and Plan: - K 5.7 -> 5.0 - initial treatment with IV fluids, repeat this evening - suspect mild increased secondary to COURTNEY - monitor (3) UTI (urinary tract infection): Qualifiers: Hematuria presence: without hematuria Urinary tract infection type: acute cystitis Qualified Code(s): N30.00 - Acute cystitis without hematuria Code(s): N39.0 - Urinary tract infection, site not specified Status: Acute Assessment and Plan: - UA: 2+ protein, 1+ blood, positive nitrates, 2+ leuks, 51-100 WBC, no epithelial cells - UC pending - no previous UC available for review - started on Ceftriaxone on 12/18 - IV fluids - antipyretic p.r.n. (4) Diabetes mellitus: Qualifiers: Diabetes mellitus complication status: without complication Diabetes mellitus ferry terminal supervisor insulin use: without ferry terminal supervisor use Diabetes mellitus type: type 2 Qualified Code(s): E11.9 - Type 2 diabetes mellitus without complications Code(s): E11.9 - Type 2 diabetes mellitus without complications Status: Acute Assessment and Plan: - hypoglycemia protocol - POC blood glucose ACHS - home medication: Hold metformin in case of need for contrast - correct regimen ordered - high dose TIDWM, based off BMI - A1C 7.6% on 12/17/2024 (5) Hypertension: Qualifiers: Hypertension type: essential hypertension Qualified Code(s): I10 - Essential (primary) hypertension Code(s): I10 - Essential (primary) hypertension Status: Acute Assessment and Plan: - chronic, currently 138/49 - continue home medications: Amlodipine, Coreg, Irbesartan-Hydrochlorothiazide - monitor (6) Hyperlipidemia: Qualifiers: Hyperlipidemia type: mixed hyperlipidemia Qualified Code(s): E78.2 - Mixed hyperlipidemia Code(s): E78.5 - Hyperlipidemia, unspecified Status: Acute Assessment and Plan: - continue home medication: Atorvastatin 80 mg daily (7) Sleep apnea: Qualifiers: Sleep apnea type: other type Qualified Code(s): G47.39 - Other sleep apnea Code(s): G47.30 - Sleep apnea, unspecified Status: Acute Assessment and Plan: - continue home CPAP Plan Diet: Diabetic GI Prophylaxis: Not currently indicated DVT Prophylaxis: SCDs IV fluids: 1L bolus -> 125 mL/hour Lines/Tubes: Peripheral IV Code Status: Full code Quality VTE Prophylaxis VTE prophylaxis: mechanical ordered Hospitalist [facility] Advance Care Plan I have confirmed that the patient's Advanced Care Plan is present, code status is documented, or surrogate decision maker is listed in patient medical record.: Yes Medication Reconciliation I have utilized all available resources to obtain, update and review the patients current medications (includes all prescriptions, OTC, herbals, cannabis, and nutritional supplements).: Yes
--- NOTE | 2024-12-18 14:27 | ADMGEN ---
This patient, Alfredito Wolfe Jr., was admitted to 3 [facility] Surg Room 320-01. Patient/family oriented to hospital policies and general routines including ID bracelet, bed and alarms, visiting hours, pain management, procedures, bathroom and other care routines, personal items, smoking policy, room service/diet, and visiting hours. Information on how to activate the Rapid Response Team has been discussed. Patient/Family are encouraged to report perceived risks to care and to ask questions if they do not understand what they are told or what they should do.
[2024-12-18 14:45] LABS: Glucose Point of Care 135 mg/dl (65-105)
[2024-12-18] MEDS: SODIUM CHLORIDE 0.9% IV 1,000 ML 125 ML IV CONT ×2 (15:31→23:36)
[2024-12-18 16:29] LABS: Glucose Point of Care 168 mg/dl (65-105)
[2024-12-18 17:42] LABS: Anion Gap 11 mmol/L (4-12); Blood Urea Nitrogen 69 mg/dL (9-20); Calcium 9.8 mg/dL (8.4-10.2); Carbon Dioxide 20 mmol/L (22-30); Chloride 107 mmol/L (98-107); Estimated CRCL calculation 54 ml/min; Estimated Glomerular Filt Rate 34; Glucose 123 mg/dL (65-110); Sodium 138 mmol/L (137-145)
--- NOTE | 2024-12-18 18:19 | PCRCNOTE ---
patient wears Bipap at home. S9 taken to room.
[2024-12-18 20:16] LABS: Glucose Point of Care 136 mg/dl (65-105)
[2024-12-18] MEDS: MELATONIN 5 MG TABLET 10 MG PO (21:12)
[2024-12-18] MEDS: OPTI-GEN TAB 1 TABLET PO (21:13)
[2024-12-18] MEDS: IRBESARTAN 150 MG TABLET 300 MG PO (21:13)
[2024-12-18] MEDS: ATORVASTATIN 40 MG TABLET 80 MG PO (21:13)
[2024-12-18] MEDS: FENOFIBRATE NANOCRYSTALLIZED 145 MG TABLET PO (21:13)
[2024-12-18] MEDS: amLODIPine BESYLATE 10 MG TABLET PO (21:13)
[2024-12-18] MEDS: hydroCHLOROthiazide 12.5 MG CAPSULE PO (21:14)
[2024-12-18] MEDS: carvediloL 12.5 MG TABLET PO (21:14)
[2024-12-18] MEDS: OMEGA 3 POLYUNSAT FATTY ACIDS 1 GM CAP 4 GM PO (21:14)
[2024-12-18] MEDS: CLOPIDOGREL BISULFATE 75 MG TABLET PO (21:14)
[2024-12-18] MEDS: ASPIRIN 81 MG ENTERIC TABLET PO (21:21)
[2024-12-19 00:05] VITALS: PULSE 61
[2024-12-19 04:00] VITALS: BP 124/54; PULSE 64; RESP 16; TEMP 36.7; O2SAT 99
[2024-12-19 04:13] VITALS: PULSE 61
[2024-12-19 07:55] VITALS: PULSE 64
[2024-12-19 08:00] VITALS: BP 135/59; PULSE 68; RESP 18; TEMP 36.4; O2SAT 97
[2024-12-19 08:03] LABS: Basophils Absolute Auto 0.1 K/mm3 (0.0-0.1); Basophils Percent Auto 0.7 % (0.2-1.2); Eosinophils Absolute Auto 0.2 K/mm3 (0-0.3); Eosinophils Percent Auto 2.9 % (0-4.4); Hematocrit 39.8 % (42.0-52.0); Immature Granulocyte Absolute 0.04 K/mm3 (0.00-0.031); Immature Granulocyte Percent A 0.5 % (0-0.5); Lymphocytes Absolute Auto 2.64 K/mm3 (0.9-3.2); Lymphocytes Percent Auto 31.6 % (18.3-44.2); Mean Corpuscular HGB Conc 32.7 g/dl (32-36); Mean Corpuscular Hemoglobin 32.7 pg (26-34); Monocytes Absolute Auto 0.7 K/mm3 (0.1-0.6); Monocytes Percent Auto 8.3 % (2.6-8.5); Neutrophils Absolute Auto 4.7 K/mm3 (1.3-6.7); Platelet Count Result 208 k/mm3 (150-375); Red Blood Count 3.98 M/mm3 (4.6-6.20); White Blood Count 8.4 K/mm3 (4.5-10.0)
[2024-12-19 08:15] LABS: Alanine Aminotransferase 39 U/L (6-50); Albumin Level 4.5 g/dL (3.5-5.1); Alkaline Phosphatase 64 U/L (38-126); Anion Gap 12 mmol/L (4-12); Aspartate Amino Transferase 39 U/L (17-59); Bilirubin,Total 0.8 mg/dL (0.2-1.3); Blood Urea Nitrogen 56 mg/dL (9-20); Calcium 9.4 mg/dL (8.4-10.2); Carbon Dioxide 15 mmol/L (22-30); Chloride 108 mmol/L (98-107); Estimated CRCL calculation 65 ml/min; Estimated Glomerular Filt Rate 43; Glucose 120 mg/dL (65-110); Sodium 135 mmol/L (137-145)
[2024-12-19 08:26] LABS: Glucose Point of Care 127 mg/dl (65-105)
[2024-12-19] MEDS: SODIUM CHLORIDE 0.9% IV 1,000 ML 125 ML IV CONT (08:38)
[2024-12-19] MEDS: carvediloL 12.5 MG TABLET PO (08:38)
--- NOTE | 2024-12-19 11:27 | P.DS_ITS ---
DS: Admitting Diagnosis Discharge Date 12/19/2024 1100 Admitting Diagnosis COURTNEY with elevated potassium DS: Discharge Diagnosis Discharge Diagnosis (1) Acute kidney injury: Code(s): N17.9 - Acute kidney failure, unspecified Status: Acute Assessment and Plan: - creatinine 2.25 and GFR 30, previously 1.4 and GFR 52 on 12/06 - suspect injury is multifactorial including possibility of recent cardiogenic hypotension/contrast induced nephropathy due to cardiac catheterization with stent placement, patient also found to have a UTI, dehydration secondary to diarrhea. Plan for rehydration over the next 24 hours, if no improvement with antibiotics and IV fluids, consider further workup and nephrology consultation. - trend renal function - trend electrolytes, correct as needed (2) Hyperkalemia: Code(s): E87.5 - Hyperkalemia Status: Acute Assessment and Plan: - K 5.7 -> 5.0 - initial treatment with IV fluids, repeat this evening - suspect mild increased secondary to COURTNEY - monitor (3) UTI (urinary tract infection): Qualifiers: Urinary tract infection type: acute cystitis Hematuria presence: without hematuria Qualified Code(s): N30.00 - Acute cystitis without hematuria Code(s): N39.0 - Urinary tract infection, site not specified Status: Acute Assessment and Plan: - UA: 2+ protein, 1+ blood, positive nitrates, 2+ leuks, 51-100 WBC, no epithelial cells - UC pending - no previous UC available for review - started on Ceftriaxone on 12/18 - IV fluids - antipyretic p.r.n. (4) Diabetes mellitus: Qualifiers: Diabetes mellitus type: type 2 Diabetes mellitus senior care insulin use: without technician terminal and repeater use Diabetes mellitus complication status: without complication Qualified Code(s): E11.9 - Type 2 diabetes mellitus without complications Code(s): E11.9 - Type 2 diabetes mellitus without complications Status: Acute Assessment and Plan: - hypoglycemia protocol - POC blood glucose ACHS - home medication: Hold metformin in case of need for contrast - correct regimen ordered - high dose TIDWM, based off BMI - A1C 7.6% on 12/17/2024 (5) Hypertension: Qualifiers: Hypertension type: essential hypertension Qualified Code(s): I10 - Essential (primary) hypertension Code(s): I10 - Essential (primary) hypertension Status: Acute Assessment and Plan: - chronic, currently 138/49 - continue home medications: Amlodipine, Coreg, Irbesartan-Hydrochlorothiazide - monitor (6) Hyperlipidemia: Qualifiers: Hyperlipidemia type: mixed hyperlipidemia Qualified Code(s): E78.2 - Mixed hyperlipidemia Code(s): E78.5 - Hyperlipidemia, unspecified Status: Acute Assessment and Plan: - continue home medication: Atorvastatin 80 mg daily (7) Sleep apnea: Qualifiers: Sleep apnea type: other type Qualified Code(s): G47.39 - Other sleep apnea Code(s): G47.30 - Sleep apnea, unspecified Status: Acute Assessment and Plan: - continue home CPAP Plan Diet: Diabetic GI Prophylaxis: Not currently indicated DVT Prophylaxis: SCDs IV fluids: 1L bolus -> 125 mL/hour Lines/Tubes: Peripheral IV Code Status: Full code DS: Summary Hospital Course Reason for hospitalization: 59 y/o M with PMH of [place] s/p stent placement, HTN, sleep apnea, HLD, and DM presents here with abnormal outpatient labs. Is here from home for further evaluation of abnormal outpatient labs that were drawn on 12/17. He reports his PCP contacted him to let him know that he had abnormal kidney labs and that his potassium was 5.6. Abnormal labs were precipitated by a recent NSTEMI that was treated via stent placement on 12/05. He was discharged from [facility] on 12/06 with a creatinine of 1.4 and GFR 52. Outpatient labs reviewed and showed a creatinine of 2.18 and GFR 34 with a potassium of 5.6. Repeat labs upon arrival showed a potassium of 5.7, creatinine of 2.25 with a GFR 30. Since NSTEMI the patient reports he has made significant diet changes (eating fruits and vegetables) and has been compliant with his prescription medications. The patient is also reporting diarrhea with the diet changes/at discharge. Estimates he has 2 BMs in a 24 hour period - states there will be waves of diarrhea while on toilet (2-3). He denies accompanying fever, chills, nausea, vomiting, or abdominal pain. Initial VS at presentation: 97.6? F, HR 69, R 18, 138/49, and 100% on RA. ED workup showed: No leukocytosis, hemoglobin 13.5 (similar to previous), potassium 5.7, creatinine 2.25 and GFR 30, glucose 132, and UA consistent with UTI. EKG showed sinus rhythm, moderate intraventricular conduction delay, rate 65. Hospital Course: Patient doing a better today. Patient denies any current chest pain, shortness breath, nausea, vomiting, diarrhea constipation. Potassium on arrival was 5.7 is currently 5.0 today. Creatinine was also elevated at 2.01 currently 1.65. Baseline creatinine appears to be about 1.3-1.4. Spoke with patient at length about diet. Patient did state that he does use misses it is sometimes however has ran out is been using currently powder, pepper, onion powder. Dietitian has been consulted the patient seems pretty confused about the foods that he and visit would be best for him. Currently patient is doing well and is stable for discharge for labs and vital signs. Did ask the patient to follow up with she does have a follow-up with Cardiology and does have a further follow-up with his primary care provider. Currently patient is stable and is being discharged home. Status at Discharge Functional status at discharge: independent ambulation Overall status at discharge: patient is progressing back to baseline Time Spent with Patient Time attestation: Total time spent providing and/or coordinating discharge services: 48 minutes Time spent: Greater than 30 minutes Specific discharge activities: Diagnostic testing, chart review, developing a treatment plan, education, care coordination documentation, physical exam, result review Exam Narrative: General: well-nourished, well-appearing 59-year-old male, sitting up in bed, comfortable, NARD Neuro: awake, alert and oriented x4, speech clear, no focal neuro deficits noted HEENMT: normocephalic, atraumatic, EOMI, sclerae anicteric, moist oral mucosa Respiratory: Clear to auscultation bilaterally without crackles, rhonchi or wheezes, nonlabored breathing Cardio: regular rate, regular rhythm with S1-S2 Abdomen: nondistended, normoactive bowel sounds, soft, nontender to palpation Extremities: no edema, erythema, or tenderness to palpation, DP pulses 2+ bilaterally Skin: no rashes or lesions, warm and dry Psych: appropriate mood and affect, judgment and insight intact DS: Data Data Completed and Pending Labs on day of discharge: Labs from last 24 hours 12/19/24 12/19/24 12/19/24 08:01 07:47 03:01 WBC 8.4 RBC 3.98 L Hgb 13.0 L Hct 39.8 L MCV 100.0 MCH 32.7 MCHC 32.7 RDW 14.0 Plt Count 208 MPV 10.0 Immature Gran % (Auto) 0.5 Neut % (Auto) 56.0 Lymph % (Auto) 31.6 [place] % (Auto) 8.3 Eos % (Auto) 2.9 Baso % (Auto) 0.7 Lymph # (Auto) 2.64 [place] # (Auto) 0.7 H Eos # (Auto) 0.2 Baso # (Auto) 0.1 Abs Immat Gran (auto) 0.04 H Absolute Neuts (auto) 4.7 Absolute Nucleated RBC 0.000 Nucleated RBC % 0.0 Sodium 135 L Potassium 5.0 Chloride 108 H Carbon Dioxide 15 L Anion Gap 12 BUN 56 H D Creatinine 1.65 H Estim Creat Clear Calc 65 Estimated GFR 43 L Glucose 120 H POC Capillary Glucose 127 H Calcium 9.4 Total Bilirubin 0.8 AST 39 ALT 39 Alkaline Phosphatase 64 Total Protein 9.0 H Albumin 4.5 Urine Color Urine Appearance Urine pH Ur Specific [place] Urine Protein Urine Glucose (UA) Urine Ketones Ur Blood (Man) Urine Nitrate Urine Bilirubin Urine Urobilinogen Add Ur Microanalysis Leukocyte Esterase Rfl Urine RBC Urine WBC Ur Squamous Epith Cells Urine Bacteria Urine Casts C. difficile (PCR) Pending 12/18/24 12/18/24 12/18/24 19:56 17:12 16:25 WBC RBC Hgb Hct MCV MCH MCHC RDW Plt Count MPV Immature Gran % (Auto) Neut % (Auto) Lymph % (Auto) [place] % (Auto) Eos % (Auto) Baso % (Auto) Lymph # (Auto) [place] # (Auto) Eos # (Auto) Baso # (Auto) Abs Immat Gran (auto) Absolute Neuts (auto) Absolute Nucleated RBC Nucleated RBC % Sodium 138 Potassium 5.0 Chloride 107 Carbon Dioxide 20 L Anion Gap 11 BUN 69 H Creatinine 2.01 H Estim Creat Clear Calc 54 Estimated GFR 34 L Glucose 123 H POC Capillary Glucose 136 H 168 H Calcium 9.8 Total Bilirubin AST ALT Alkaline Phosphatase Total Protein Albumin Urine Color Urine Appearance Urine pH Ur Specific [place] Urine Protein Urine Glucose (UA) Urine Ketones Ur Blood (Man) Urine Nitrate Urine Bilirubin Urine Urobilinogen Add Ur Microanalysis Leukocyte Esterase Rfl Urine RBC Urine WBC Ur Squamous Epith Cells Urine Bacteria Urine Casts C. difficile (PCR) 12/18/24 12/18/24 14:41 12:20 WBC RBC Hgb Hct MCV MCH MCHC RDW Plt Count MPV Immature Gran % (Auto) Neut % (Auto) Lymph % (Auto) [place] % (Auto) Eos % (Auto) Baso % (Auto) Lymph # (Auto) [place] # (Auto) Eos # (Auto) Baso # (Auto) Abs Immat Gran (auto) Absolute Neuts (auto) Absolute Nucleated RBC Nucleated RBC % Sodium Potassium Chloride Carbon Dioxide Anion Gap BUN Creatinine Estim Creat Clear Calc Estimated GFR Glucose POC Capillary Glucose 135 H Calcium Total Bilirubin AST ALT Alkaline Phosphatase Total Protein Albumin Urine Color Yellow Urine Appearance Clear Urine pH 5.0 Ur Specific [place] 1.016 Urine Protein 2+ H Urine Glucose (UA) Negative Urine Ketones Negative Ur Blood (Man) 1+ H Urine Nitrate Positive H Urine Bilirubin Negative Urine Urobilinogen 0.2 Add Ur Microanalysis Reviewed Leukocyte Esterase Rfl 2+ H Urine RBC 0-2 Urine WBC 51-100 H Ur Squamous Epith Cells Occasional Urine Bacteria None seen Urine Casts 3-5 C. difficile (PCR) Discharge Plan Discharge Attending physician on discharge: Michele Denson Discharging Clinician: Duane Damico Patient Disposition: Home Activity: may shower, unlimited and as tolerated Diet: diabetic Discharge Instructions: * Take medications as prescribed * Maintain a cardiac diet, 2 g sodium * Stay hydrated * Remain active * Monitor urine output * Daily weights, if you gain more than 3 lb within 1 day or 5 lb in 1 week notify your primary care provider * If you develop chest pain, shortness breath, fever greater than 101, nausea, or vomiting notify a clinician or come to the emergency department * Follow-up with primary care provider within 1 weeks * Thank you for [facility] for your healthcare needs Patient Instructions: Antibiotic Form Patient Language: Iraqi Stand Alone Forms: General Discharge Information Follow-up/Referrals: Devang Sanchez DO [Primary Care Provider] - 1 Week Discharge Medications: Continued aspirin [Adult Low Dose Aspirin] 81 mg tablet,delayed release (DR/EC) 81 mg PO HS Centrum Silver Men 300-600-300 mcg tablet 1 tablet PO HS baclofen 10 mg tablet 10 mg PO TID PRN (Reason: muscle spasm) Qty: 20 1RF omega-3 fatty acids [Fish Oil Concentrate] 1,000 mg capsule 4,000 mg PO HS triamcinolone acetonide 0.1 % lotion 1 applic topical BID PRN (Reason: rash) Qty: 60 0RF melatonin 10 mg capsule 80 mg PO HS clopidogrel [Plavix] 75 mg tablet 75 mg PO HS Rx Instructions: START 75MG DAILY ON 12/08/24 atorvastatin 80 mg tablet 80 mg PO HS amlodipine 10 mg tablet 10 mg PO HS metformin 1,000 mg tablet 2,000 mg PO HS irbesartan-hydrochlorothiazide 300-12.5 mg tablet 1 tablet PO HS fenofibrate 160 mg tablet 160 mg PO HS carvedilol [Coreg] 12.5 mg Tablet 12.5 mg PO Q12HR Qty: 60 0RF Date of admission: 12/19/24 10:26 Primary Care Provider: Devang Sanchez Admitting Provider: Michele Denson Attending physician on admission: Michele Denson Condition: Stable Quality VTE Prophylaxis VTE prophylaxis: mechanical ordered Hospitalist MIPS Heart Failure (Exclusion) Patient has history of Heart Transplant or Left Ventricular Assistive Device?: No IF YES, STOP HERE Heart Failure (Qualifier) Patient has current or prior documentation of LVEF less than or equal to 40%, or mod/servere depressed LVSF?: No IF NO, STOP HERE
[2024-12-19 12:00] VITALS: PULSE 65
[2024-12-19 12:10] LABS: Glucose Point of Care 135 mg/dl (65-105)
--- NOTE | 2024-12-20 11:18 | PC.NURSE ---
[facility]NT out pt referral started. Referral faxed to Dr. Sanchez.
== END 2024-12-19 13:50 | disposition home or self-care (01) ==
LOC: ANHED 12:53 → ANH3MEDSUR 13:01
PROVIDERS: Student in an Organized Health Care Education/Training Program; Admitting Provider Internal Medicine; Emergency Provider Physician Assistant; PCP Internal Medicine; Visit Provider Internal Medicine
DX: N17.9 Acute kidney failure, unspecified (principal); E87.5 Hyperkalemia; E86.0 Dehydration; N30.00 Acute cystitis without hematuria; E11.9 Type 2 diabetes mellitus without complications; I10 Essential (primary) hypertension; E78.2 Mixed hyperlipidemia; G47.39 Other sleep apnea; F17.210 Nicotine dependence, cigarettes, uncomplicated; I21.4 Non-ST elevation (NSTEMI) myocardial infarction; Z95.5 Presence of coronary angioplasty implant and graft; Z79.02 Long term (current) use of antithrombotics/antiplatelets; Z79.82 Long term (current) use of aspirin; Z79.84 Long term (current) use of oral hypoglycemic drugs; Z79.899 Other long term (current) drug therapy; Z98.1 Arthrodesis status; Z99.89 Dependence on other enabling machines and devices
CPT/HCPCS: 36415; 80048; 80053; 81001; 82948; 85025; 87077; 87086; 87186; 93005; 96361; 96365; 96376; 99285; A9270; G0378; J0696; J7030; J7040

== ENCOUNTER 2025-03-27 08:15 | Outpatient (RCR) | payer MEDICARE, SELFPAY ==
[2025-01-09 08:15] VITALS: BMI 54.1
[2025-01-09 08:20] VITALS: BMI 54.1
--- NOTE | 2025-01-09 13:16 | PCDIET ---
01/09/25: MNT Consult completed
[2025-03-27 08:20] VITALS: BMI 54.1
== END 2025-03-31 12:21 | disposition home or self-care (01) ==
LOC: ANHDMC 08:15
PROVIDERS: PCP Internal Medicine; Visit Provider Internal Medicine
DX: E11.65 Type 2 diabetes mellitus with hyperglycemia (principal); E78.5 Hyperlipidemia, unspecified; I10 Essential (primary) hypertension; Z71.3 Dietary counseling and surveillance
CPT/HCPCS: 97802; 97803

== ENCOUNTER 2025-05-08 08:27 | Outpatient (CLI) | payer MEDICARE, SELFPAY ==
--- NOTE | ~2025-05-08 | US_ITS ---
EXAMINATION: US renal BI, 05/08/2025 8:28 CDT HISTORY: E11.22 - Type 2 diabetes mellitus with diabetic chronic k... Comparison: None Technique: Liang-scale and color Doppler images were obtained. Findings: KIDNEYS: Renal cortices intact, no solid masses, cysts or calculi, no hydronephrosis. Right Kidney: Right kidney 15 x 6.2 x 6.3 cm. Left Kidney: Left kidney 13.8 x 4.5 x 7 cm. Bladder: The bladder is unremarkable. . Impression: No acute abnormality. Reviewed, dictated and finalized at location P. Impression: No acute abnormality.
== END 2025-05-08 08:28 | disposition home or self-care (01) ==
LOC: GOSHIMG 08:27
PROVIDERS: PCP Internal Medicine; Visit Provider Internal Medicine Nephrology
DX: E11.22 Type 2 diabetes mellitus with diabetic chronic kidney disease (principal); I12.9 Hypertensive chronic kidney disease with stage 1 through stage 4 chronic kidney disease, or unspecified chronic kidney disease; N18.31 Chronic kidney disease, stage 3a
CPT/HCPCS: 76770

== ENCOUNTER 2025-05-16 11:56 | Emergency (ER) | payer MEDICARE, SELFPAY ==
[2025-05-16 12:05] VITALS: BP 122/62; PULSE 66; RESP 16; TEMP 35.8; O2SAT 98
--- NOTE | 2025-05-16 12:42 | ED.GENADULT ---
HPI - General Adult General Chief complaint: Skin/Abscess/Foreign Body Stated complaint: ABSCESS ON R THIGH Source: patient Mode of arrival: ambulatory Limitations: no limitations History of Present Illness HPI narrative: Pt presents for evaluation of a painful lesion to the right inner thigh. Symptom onset three days ago. He has had abscess formations in the past. No fever, chills, nausea, vomiting, purulence from the affected area. He attempted to express fluid from the are and noted some sanguinous drainage. He is diabetic. He believes his last A1c was 7.1. Related Data Home Medications ?Medication ?Instructions ?Recorded ?Confirmed ?Last Taken ?Type aspirin 81 mg tablet,delayed 81 mg PO HS 05/28/19 04/15/25 12/17/24 History release (Adult Low Dose Aspirin) omega-3 fatty acids 1,000 mg 4,000 mg PO HS 06/19/20 04/15/25 12/17/24 History capsule (Fish Oil Concentrate) metformin 1,000 mg tablet 2,000 mg PO HS 12/05/24 04/15/25 12/17/24 History clopidogrel 75 mg tablet (Plavix) 75 mg PO HS 12/18/24 04/15/25 12/17/24 History melatonin 10 mg capsule 10 mg PO HS 12/26/24 04/15/25 Unknown History Allergies Allergy/AdvReac Type Severity Reaction Status Date / Time No Known Allergies Allergy Verified 05/16/25 12:04 [facility] Past Medical History Medical History Gout Non-ST elevation TX (NSTEMI) Diabetes mellitus Hyperlipidemia Tobacco abuse Elevated cholesterol Rotator cuff injury Hypertension Arthritis Sleep apnea On CPAP Cervical vertebral fusion C6 - C7 plates and screws. Surgical History Surgical History H/O cervical spine surgery C6-7 plates and screws S/P cubital tunnel release History of carpal tunnel surgery History of knee replacement Family History Family History Mother Family history of mental disorder Hypertension Anxiety Osteoarthritis Father Hypertension Heart attack Grandparent Heart attack Social History Social History Smoking packs per day: 1 Smoking cigarettes per day: 20.0 Years smoked: 45 Smoking pack-years: 45.00 Smoking status: Current every day smoker Tobacco type: cigarettes Alcohol intake: current Drinks per week: 6 Alcohol use details: once a week Substance use: current Substance use type: marijuana Last use: 11/29/2024 Do You Feel Safe in your Home?: Yes Lack of Transportation: No Lack of Food: Never True Current Housing: I Have Housing Concerned About Future Housing: No Difficulty Paying Gas/Electric Bills: No Difficulty Paying for Meds: No Currently Unemployed: No Education: High School Diploma/GED Difficulty w/ Childcare or Family Care: No Gender identity (if verbalized by the patient): Male Spiritual care concerns: No Exam Narrative: GENERAL: Well-appearing, well-nourished, and in no acute distress. HEAD: Normocephalic, atraumatic. EYES: PERRLA and EOMI. ENT: Nares clear, no rhinorrhea or epistaxis. Mucous membranes moist. Oropharynx without tonsillar hypertrophy exudate or other lesions. Bilateral TMs pearly pastrana nonbulging NECK: Supple. No adenopathy or masses. No carotid bruits or JVD CHEST: Clear to auscultation. No respiratory distress. No wheezes rales or rhonchi HEART: Regular rate and rhythm. No murmur heard. Normal peripheral pulses. ABDOMEN: Soft, nontender, nondistended, normal active bowel sounds. EXTREMITIES: Normal range of motion. No edema. SKIN: approximately 1.5 cm raised fluctuant lesion to the right inner thigh with surrounding erythema. NEURO: No focal deficits. Alert and oriented x3. PSYCH: Normal mood and affect. Course Course Emergency Course: This is a 60-year-old male who presented for evaluation of a painful swollen lesion to the right inner thigh. Exam consistent with cutaneous abscess. After obtaining informed consent, incision and drainage was performed. Patient tolerated well. Wound culture obtained. Will discharge with cephalexin, Bactrim and hydrocodone. He should follow-up with his primary care provider and go to the emergency department for worsening symptoms. Patient in agreement with plan care. Level of Care: Express Care Visit Vital Signs Vital signs: Vital Signs Temperature 35.8 C L 05/16/25 12:05 Pulse Rate 66 05/16/25 12:05 Respiratory Rate 16 05/16/25 12:05 Blood Pressure 122/62 05/16/25 12:05 Pulse Oximetry 98 05/16/25 12:05 Temperature 35.8 C L 05/16/25 12:05 Pulse Rate 66 05/16/25 12:05 Respiratory Rate 16 05/16/25 12:05 Blood Pressure 122/62 05/16/25 12:05 Pulse Oximetry 98 05/16/25 12:05 Procedures Abscess I/D lower extremity: Date of Incision: 05/16/25 Time of Incision: 13:38 Side (if applicable): right Local Anesthetic: lidocaine 1% Amount of anesthesia used (mL): 14 Technique: incised with #11 blade Amount of fluid expressed (mL): 15 Irrigation: No Packing used?: plain I&D Results: Pus and Blood Medical Decision Making Vital Signs Vital Signs: Vital Signs Temperature 35.8 C L 05/16/25 12:05 Pulse Rate 66 05/16/25 12:05 Respiratory Rate 16 05/16/25 12:05 Blood Pressure 122/62 05/16/25 12:05 Pulse Oximetry 98 05/16/25 12:05 Temperature 35.8 C L 05/16/25 12:05 Pulse Rate 66 05/16/25 12:05 Respiratory Rate 16 05/16/25 12:05 Blood Pressure 122/62 05/16/25 12:05 Pulse Oximetry 98 05/16/25 12:05 Discharge Plan Discharge Clinical Impression: Abscess of right thigh Patient Disposition: Home Condition: Stable Instructions: Antibiotic Form, Abscess (ED), Incision and Drainage (ED) Patient Language: Turkmen Prescriptions: New sulfamethoxazole-trimethoprim [Bactrim DS] 800-160 mg tablet 1 tablet PO Q12H Qty: 20 0RF hydrocodone-acetaminophen 5-325 mg tablet 1 - 2 tablet PO Q6H PRN (Reason: pain) Qty: 15 0RF cephalexin 500 mg capsule 500 mg PO Q6H Qty: 40 0RF No Action aspirin [Adult Low Dose Aspirin] 81 mg tablet,delayed release (DR/EC) 81 mg PO HS colchicine 0.6 mg tablet See Rx Instructions PO .COMPLEX Qty: 10 1RF Rx Instructions: take 2 tablets and then 1 hour later take 1 tablet on day one. Then take 1 tablet daily until flare resolves. omega-3 fatty acids [Fish Oil Concentrate] 1,000 mg capsule 4,000 mg PO HS melatonin 10 mg capsule 10 mg PO HS clopidogrel [Plavix] 75 mg tablet 75 mg PO HS Rx Instructions: START 75MG DAILY ON 12/08/24 metformin 1,000 mg tablet 2,000 mg PO HS carvedilol [Coreg] 12.5 mg Tablet 12.5 mg PO Q12HR Qty: 60 0RF atorvastatin 80 mg tablet 80 mg PO HS Qty: 100 1RF fenofibrate 160 mg tablet 160 mg PO HS Qty: 100 1RF irbesartan-hydrochlorothiazide 300-12.5 mg tablet 1 tablet PO DAILY Qty: 100 1RF amlodipine 10 mg tablet 10 mg PO HS Qty: 100 1RF Follow-up/Referrals: Larissa Michele APRN [Primary Care Provider, Internal Medicine] Time of Disposition: 13:36
== END 2025-05-16 13:40 | disposition home or self-care (01) ==
PROVIDERS: Emergency Provider Nurse Practitioner; PCP Nurse Practitioner
DX: L02.415 Cutaneous abscess of right lower limb (principal); I25.2 Old myocardial infarction; E11.9 Type 2 diabetes mellitus without complications; E78.5 Hyperlipidemia, unspecified; I10 Essential (primary) hypertension; F17.210 Nicotine dependence, cigarettes, uncomplicated
CPT/HCPCS: 10060; 87070; 87075; 87186; 99213; G0463